=== PATIENT | female | born 1995 | race Caucasian/White ===

== ENCOUNTER 2017-02-03 22:05 | Inpatient (IN) | payer OTHER, SELFPAY ==
[~2017-02-03] VITALS: Ht 165.1 cm; Wt 64.1 kg
[2017-02-03] MEDS ORDERED: mood stabilizer PO (22:37)
[2017-02-03] MEDS ORDERED: BUPR10TASR PO (22:37)
[2017-02-03] MEDS ORDERED: atarax PO (22:37)
[2017-02-03 23:59] LABS: ALBUMIN 4.5 GM/DL (3.2-5.2); ALBUMIN/GLOBULIN RATIO 1.45 (1.00-1.93); ALKALINE PHOSPHATASE 93 U/L (45-117); ALT/SGPT 20 U/L (12-78); ANION GAP 8 MEQ/L (8-16); AST/SGOT 11 U/L (15-37); BILIRUBIN,DIRECT < 0.1 MG/DL (0.0-0.2); BILIRUBIN,TOTAL 0.3 MG/DL (0.2-1.0); BLOOD UREA NITROGEN 15 MG/DL (7-18); CALCIUM LEVEL 9.4 MG/DL (8.5-10.1); CARBON DIOXIDE LEVEL 28 MEQ/L (21-32); CHLORIDE LEVEL 105 MEQ/L (98-107); GLOMERULAR FILTRATION RATE > 60.0 (>60); GLUCOSE, FASTING 95 MG/DL (70-105); POTASSIUM SERUM 4.2 MEQ/L (3.5-5.1); SODIUM LEVEL 141 MEQ/L (136-145); TOTAL PROTEIN 7.6 GM/DL (6.4-8.2)
[2017-02-04 00:01] LABS: MEAN CORPUSCULAR HEMOGLOBIN 31.1 pg (27.0-33.0); MEAN CORPUSCULAR HGB CONC 33.3 g/dl (32.0-36.5); MEAN CORPUSCULAR VOLUME 93.6 fl (80.0-96.0); RED CELL DISTRIBUTION WIDTH 12.7 % (11.5-14.5); WHITE BLOOD COUNT 8.1 K/mm3 (4.0-10.0)
[2017-02-04 00:03] LABS: METHADONE URINE NEGATIVE (NEGATIVE)
[2017-02-04] MEDS ORDERED: MAALOX 30 ML SUSP *UDC PO PRN (01:00)
[2017-02-04] MEDS ORDERED: ACETAMINOPHEN TAB 650MG DOSE (2X325MG) PO PRN (01:00)
[2017-02-04] MEDS ORDERED: MOM 30ML SUSPENSION UDC PO PRN (01:00)
[2017-02-04] MEDS ORDERED: OXCA150T PO ×2 (01:46→09:26)
[2017-02-04] MEDS ORDERED: HYDR25T PO (01:46)
[2017-02-04] MEDS ORDERED: BUPR15TASR PO (01:46)
[2017-02-04 01:50] VITALS: BP 130/89
[2017-02-04 01:54] LABS: CONTROL LINE HCG INT CTR LINE PRESENT
[2017-02-04 06:18] VITALS: BP 116/57
[2017-02-04] MEDS: NICOTINE 21MG/24HR 1 EA TRANSDERMAL TD SCH (09:16)
[2017-02-04] MEDS ORDERED: BUPR150T3 PO (09:23)
--- NOTE | 2017-02-04 09:24 | HPEPDOC ---
Medical History and Physical Date of Admission Feb 04, 2017 at 00:50 History and Physical PCP: Diana ATTENDING: Dr. Woody Palomo HPI: 21yoF admitted to [facility] for Depression, being medically examined today. No acute medical complaints today. Pt is using crutches currently for partial ACL tearas per PCP. MRI Left knee completed following injury after Pt stepping into vehicle. Pt attending physical therapy in [place], F/U with Orthopedics . Denies any fevers, chills, weakness, fatigue, MAR, CP, SOB, cough, palpitations, abdominal pain, N/V/D or changes in bowel or bladder habits. PMHx: depression self mutilation PSHX: denies SOCHX: Resides in: [facility] Marital Status: Kids: None Employment: Unemployed Tobacco use: 6-7 per day ETOH: 1 to 2 per month Illicit Drugs: Marijuana weekly IV Drug Use: Denies Tattoos done unprofessionally: Denies FAMHX: Mother: Alive, well Father: Alive, well Siblings: 2 sisters Alive, well Children: None Unexpected deaths due to medical reasons: None. ROS: As noted in HPI, otherwise 11pt ROS of systems reviewed and remarkable only for LMP 12/25/16. PE: GEN: 21yoF, appears stated age. Well-nourished, well developed. No acute distress. Alert and oriented x 3. Pleasant, interactive. HEENT: Normocephalic, atraumatic. Pupils are equal, round, and reactive to light. Extraocular movements are intact. No nystagmus appreciated. Sclera are nonicteric. Conjunctiva without injection. Nose midline. Nasal turbinates without bogginess. EACs both patent BL. TMs both visualized and palacios with good cone of light, no bulging or erythema. No facial asymmetry. Moist mucous membranes. Dentition fair. Pharynx pink and moist, no cobblestoning. Neck supple , trachea midline. No lymphadenopathy or thyromegaly appreciated. CHEST: Regular rate and rhythm, +S1, +S2 LUNGS: Clear to auscultation bilaterally. No wheezes, rales, or rhonchi. Breathing appears symmetric and easy. Patient is speaking in full sentences. No accessory muscle use. ABD: Round, soft, non-tender, non-distended. +Bowel sounds throughout. No rebound or guarding. No costovertebral angle tenderness. EXT: Pulses 2+ bilaterally dorsalis pedis and radial. No lower extremity edema appreciated. SKIN: [place], dry, warm. Capillary refill <2sec. No rashes. Superficial lacerations noted b/l forearms. Healing laceration noted right mid hubbard. NEURO: Alert and oriented x 3. Cranial nerves III-XII are intact. No focal deficits appreciated. EKG: pending. A&P: 21yoF admitted to [facility] for Depression 1. Psych. Plan per Psychiatry. Obtain baseline EKG to assure the safety of psychiatric medications as they can prolong the QT interval. 2. Nicotine dependence. Patch available. 3. Partial ACL tear. Following with PCP. Has been referred to Orthopedics and has appt scheduled 02/23/17. Has been referred to and is seeing PT in [facility]. Will continue with PT. Pt continues to use crutches. Continue with Naproxen as needed for discomfort. 4. Follow up with PCP on discharge. 5. Substance use. Per psychiatry. 6. Superficial lacerations. Healing, no signs of infection. Apply Bactroban if needed. Dry dressing if needed. 7. Staff member Ana TALAVERA present throughout exam. Vital Signs Vital Signs Date Time Temp Pulse Resp B/P Pulse Ox O2 Delivery O2 Flow Rate FiO2 02/04/17 06:18 98.0 76 16 116/57 02/04/17 01:50 100 Room Air Laboratory Data Labs 24H Laboratory Tests 2 02/03/17 22:49: Acetaminophen Level < 2.0L, Aspartate Amino Transf (AST/SGOT) 11L, Alanine Aminotransferase (ALT/SGPT) 20, Alkaline Phosphatase 93, Total Bilirubin 0.3, Direct Bilirubin < 0.1, Albumin 4.5, Albumin/Globulin Ratio 1.45, Anion Gap 8, Calcium Level 9.4, Ethyl Alcohol Level < 0.003, Glomerular Filtration Rate > 60.0, Human Chorionic Gonadotropin, Qual NEGATIVE, Salicylates Level 2.2L, Thyroid Stimulating Hormone (TSH) 0.996, Total Protein 7.6, Urine Amphetamines Screen NEGATIVE, Urine Benzodiazepines Screen NEGATIVE, Urine Opiates Screen NEGATIVE, Urine Barbiturates Screen NEGATIVE, Urine Cannabinoids Screen POSITIVEH, Urine Cocaine Metabolite Screen NEGATIVE, Urine Methadone Screen NEGATIVE, Urine Phencyclidine Screen NEGATIVE CBC/BMP Laboratory Tests 02/03/17 22:49 Red Blood Count 4.45, Mean Corpuscular Volume 93.6, Mean Corpuscular Hemoglobin 31.1, Mean Corpuscular Hemoglobin Concent 33.3, Red Cell Distribution Width 12.7 Home Medications Scheduled Bupropion HCl (Bupropion HCl Sr) 150 Mg Tab 150 MG PO DAILY Hydroxyzine HCl (Hydroxyzine HCl) 25 Mg Tab Unknown Dose PO QHS Oxcarbazepine (Oxcarbazepine) 150 Mg Tab Unknown Dose PO BID Allergies Coded Allergies: No Known Allergies (Unverified , 02/03/17) Sridevi Roberts Feb 04, 2017 09:24
[2017-02-04] MEDS ORDERED: HYDR10T PO (09:26)
[2017-02-04] MEDS ORDERED: NAPR500T2 PO (09:26)
[2017-02-04] MEDS ORDERED: MELA0.02 PO (09:26)
[2017-02-04] MEDS ORDERED: MUPIROCIN 2% OINT 22 GM TUBE TOP PRN (09:30)
[2017-02-04] MEDS ORDERED: LEVOTAB11 PO (09:32)
[2017-02-04] MEDS ORDERED: LESSTAB PO (09:32)
[2017-02-04] MEDS: buPROPion **XL** TABLET 150MG (WELLBUTRIN XL) PO SCH (09:51)
--- NOTE | 2017-02-04 10:08 | MHHPE ---
DATE OF ADMISSION: 02/04/2017 This is a 21-year-old, , white female who has been for a year. Her is a soldier at [employer]. She is from [place] originally and has known her for five years. Her is a 20-year-old and wanted to make the Army his career. She describes him as "controlling about money and putting her down". She states recently when she told him she was going to the hospital he has called her an idiot. She states that she has serious suicidal thoughts two to three times a week since she was 16 years old. She states it is caused by other people picking on her. She states she constantly argues with her . She states he is different since he was deployed to [facility] and is more temperamental. The patient states she has cut herself since the age of 15 erratically. She was suicidal on the night of admission. EDUCATION: The patient wants GED. She states she procrastinates, it is not going well. She has not completed it or attempted to sign up for it. FAMILY HISTORY: Her father and mother are . Mother lives in [place]. Father lives in [place]. She has two siblings, a 16 and 24 year old sister. PSYCHIATRIC AND PSYCHOLOGICAL HISTORY: The patient is treated at [facility] by Dr. Merrill, psychiatrist, who she has seen once over telepsychiatry. She has a psychologist as well as a therapist as well as a regular doctor. She states she sees them to discuss her depression and fighting with her . She sees the therapist most frequently. SURGICAL HISTORY: She has torn her anterior cruciate ligament (ACL) attempting to get in a car after spraining her other ankle. MEDICATIONS: She is on a mood stabilizer that she does not know, apparently Tegretol. She is on Wellbutrin 150 mg and occasionally takes sleeping pills 10 mg. She does not know what they are, she says she takes up to three of them. LEGAL HISTORY: Negative. DRUG HISTORY: She smokes pot once to twice a week. She drinks occasionally. PSYCHIATRIC HISTORY: She has never been hospitalized. She presently is denying suicidal or homicidal ideation. She denies hallucinations, delusions, obsessions, compulsions, and phobias. Her speech is normal. Thought process is logical. No loose associations. No abnormal or psychotic thoughts. Judgment and insight are fair. She is fully oriented. No disturbance of recent and remote memory. No disturbance of attention or concentration. No disturbance of language. Full fund of knowledge. Mood is good. Affect is bright. DIAGNOSES: Dysthymic disorder. Mixed personality traits.
[2017-02-04 18:00] VITALS: BP 121/71
--- NOTE | 2017-02-04 18:45 | ECGEPIP ---
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
[2017-02-04] MEDS ORDERED: OXcarbazepine 150 MG TAB PO ONE (21:45)
[2017-02-05 07:12] VITALS: BP 105/58
[2017-02-05] MEDS: buPROPion **XL** TABLET 150MG (WELLBUTRIN XL) PO SCH (08:30)
[2017-02-05] MEDS: NICOTINE 21MG/24HR 1 EA TRANSDERMAL TD SCH (08:30)
[2017-02-05] MEDS ORDERED: hydrOXYzine 25 MG TAB PO PRN (12:15)
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
[2017-02-05] MEDS: NAPROXEN 250 MG TAB PO PRN (15:48)
[2017-02-05 18:00] VITALS: BP 127/88
[2017-02-05] MEDS: traZODone 50 MG TAB PO PRN (23:17)
[2017-02-06 06:34] VITALS: BP 103/54
[2017-02-06] MEDS: NICOTINE 21MG/24HR 1 EA TRANSDERMAL TD SCH (08:31)
[2017-02-06] MEDS: buPROPion **XL** TABLET 150MG (WELLBUTRIN XL) PO SCH (08:32)
[2017-02-06 18:00] VITALS: BP 122/81
[2017-02-06] MEDS: NAPROXEN 250 MG TAB PO PRN (19:34)
--- NOTE | 2017-02-06 20:05 | IPNPDOC ---
[facility] Progress Note Progress Note DATE OF SERVICE: 02/06/17 INTERVAL HISTORY: Medication Side effects: Believes that she has some dry mouth and lethargy from the trazodone Behavior/events: No events overnight was being visited by friend Group Attendance: Has attended groups Psychiatric Symptoms: Reports that her anxiety is slightly higher after being in the [place] but her depressive symptoms have resolved. VITAL SIGNS: See below. NEW TEST RESULTS: See below CURRENT MEDICATIONS: See below. MENTAL STATUS EXAMINATION: General: Well dressed with good hygiene Speech: Spontaneous and fluid Thought processes: Linear and logical Thought content: Future orientated Abstract reasoning, and computation: Intact Description of associations: Intact Description of abnormal or psychotic thoughts: Makes no threats towards herself or others. Denies any auditory or visual hallucinations. Does not appear to be responding to internal stimuli. Does not appear to be endorsing any bizarre or paranoid ideation. Judgment: Good Insight: Good Orientation: Alert and orientated 3 Recent and remote memory: Intact Attention span and concentration: Intact Fund of knowledge: Adequate Mood: "Okay" Affect: Euthymic with a full range DIAGNOSES: 1. Unspecified depressive disorder. 2. Unspecified personality disorder. ASSESSMENT: Improving MANAGEMENT PLAN: Medications: Continue Wellbutrin and trazodone Psychotherapy: Encourage group psychotherapy Social: Consider possible discharge on Wednesday depending on primary team's opinion Misc: Ordered UA and hemoglobin A1c due to long history of polyuria at night as well as increased thirst last several years Disposition: The patient will need of further inpatient stay to address medication adjustment safety planning. TIME SPENT: 15 minutes. Vital Signs Vital Signs Date Time Temp Pulse Resp B/P Pulse Ox O2 Delivery O2 Flow Rate FiO2 02/06/17 06:34 96.7 81 16 103/54 02/04/17 01:50 100 Room Air Current Medications Current Medications Acetaminophen (Tylenol Tab) 650 mg Q6HP PRN PO HEADACHE or DISCOMFORT; Start at 01:00; Stop 03/06/17 at 00:59 Al Hydrox/Mg Hydrox/Simethicone (Mylanta) 30 ml Q4HP PRN PO HEARTBURN/ INDIGESTION; Start 02/04/17 at 01:00; Stop 03/06/17 at 00:59 Bupropion HCl (Wellbutrin Xl) 150 mg DAILY PO Last administered on 02/06/17t 08 :32; Start 02/04/17 at 09:00; Stop 03/06/17 at 08:59 Home Med (Med Rec Complete!) ASDIRECTED XX ; Start 02/04/17 at 02:00; Stop at 02:24; Status DC Home Med (Med Rec Complete!) ASDIRECTED XX ; Start 02/04/17 at 09:45; Stop at 09:45; Status DC Hydroxyzine HCl (Atarax) 25 mg Q6HP PRN PO ANXIETY Last administered on 12:14; Start 02/05/17 at 12:15; Stop 03/07/17 at 12:14 Magnesium Hydroxide (Milk Of Magnesia) 30 ml DAILYPRN PRN PO CONSTIPATION; Start 02/04/17 at 01:00; Stop 03/06/17 at 00:59 Mupirocin (Bactroban 2% Ointment) 1 dose BID PRN TOP REDNESS/IRRITATION; Start 02/04/17 at 09:30; Stop 03/06/17 at 09:29 Naproxen (Naprosyn) 250 mg Q12HP PRN PO PAIN OR DISCOMFORT Last administered on 02/06/17 19:34; Start 02/04/17 at 09:30; Stop 03/06/17 at 09:29 Nicotine (Nicoderm Cq 21mg) 1 patch DAILY TD Last administered on 02/06/17 08: 31; Start 02/04/17 at 09:00; Stop 03/06/17 at 08:59 Trazodone HCl (Desyrel) 50 mg QHSP PRN PO INSOMNIA Last administered on 23:17; Start 02/04/17 at 01:00; Stop 03/06/17 at 00:59 Allergies Coded Allergies: No Known Allergies (Unverified , 02/03/17) GME ATTESTATION My preceptor for this patient encounter was physically present in the building during the encounter and was fully available. As needed, all aspects of the patient interview, examination, medical decision making process, and medical care plan development were reviewed and approved by the preceptor. Preceptor is aware and concurs with the plan as stated in the body of this note and will attest to such by his/her cosignature. MARKIE LOREDO DO, Apr 22, 2017 20:05
[2017-02-07] MEDS: traZODone 50 MG TAB PO PRN ×2 (00:03→23:03)
[2017-02-07 06:41] VITALS: BP 126/87
[2017-02-07] MEDS: buPROPion **XL** TABLET 150MG (WELLBUTRIN XL) PO SCH (08:21)
[2017-02-07] MEDS: NICOTINE 21MG/24HR 1 EA TRANSDERMAL TD SCH (08:21)
[2017-02-07 18:00] VITALS: BP 118/80
[2017-02-07] MEDS: NAPROXEN 250 MG TAB PO PRN (18:57)
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
[2017-02-08 06:23] VITALS: BP 97/54
[2017-02-08] MEDS: NICOTINE 21MG/24HR 1 EA TRANSDERMAL TD SCH (08:46)
[2017-02-08] MEDS: buPROPion **XL** TABLET 150MG (WELLBUTRIN XL) PO SCH (08:46)
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
[2017-02-08] MEDS: NAPROXEN 250 MG TAB PO PRN (16:02)
[2017-02-08 18:00] VITALS: BP 127/64
[2017-02-08] MEDS: traZODone 50 MG TAB PO PRN (21:53)
[2017-02-09 06:49] VITALS: BP 113/59
[2017-02-09] MEDS: buPROPion **XL** TABLET 150MG (WELLBUTRIN XL) PO SCH (08:04)
[2017-02-09] MEDS: NICOTINE 21MG/24HR 1 EA TRANSDERMAL TD SCH (08:04)
[2017-02-09] MEDS ORDERED: HYDR25T PO (09:07)
[2017-02-09] MEDS ORDERED: NAPR250T45 PO (09:07)
[2017-02-09] MEDS ORDERED: BUPR150T3 PO (09:07)
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
== END 2017-02-09 12:20 | disposition home or self-care (01) | DRG 881 ==
LOC: M ED 23:32 → M ED INP 02-04 00:50 → M PSY 02-04 01:53
PROVIDERS: ADMIT Psychiatry & Neurology Child & Adolescent Psychiatry; ATTEND Psychiatry & Neurology Child & Adolescent Psychiatry
DX: F32.9 Major depressive disorder, single episode, unspecified (principal); Z63.0 Problems in relationship with spouse or partner; Z79.899 Other long term (current) drug therapy; F17.200 Nicotine dependence, unspecified, uncomplicated

== ENCOUNTER → 2017-11-29 | Outpatient (REF) | payer OTHER | LOC: M LAB REF 13:35 | DX: J11.1 Influenza due to unidentified influenza virus with other respiratory manifestations (principal) ==

== ENCOUNTER → 2018-01-17 | Outpatient (CLI) | payer OTHER ==
[2018-01-17 18:40] LABS: ALBUMIN 4.5 GM/DL (3.2-5.2); ALBUMIN/GLOBULIN RATIO 1.45 (1.00-1.93); ALKALINE PHOSPHATASE 68 U/L (45-117); ALT/SGPT 17 U/L (12-78); AMYLASE 24 U/L (25-115); ANION GAP 3 MEQ/L (8-16); AST/SGOT 16 U/L (7-37); BILIRUBIN,TOTAL 0.4 MG/DL (0.2-1.0); BLOOD UREA NITROGEN 12 MG/DL (7-18); CALCIUM LEVEL 9.5 MG/DL (8.5-10.1); CARBON DIOXIDE LEVEL 27 MEQ/L (21-32); CHLORIDE LEVEL 110 MEQ/L (98-107); CREATININE FOR GFR 0.78 MG/DL (0.55-1.30); GLOMERULAR FILTRATION RATE > 60.0 (>60); GLUCOSE, FASTING 81 MG/DL (70-100); LIPASE 65 U/L (73-393); SODIUM LEVEL 140 MEQ/L (136-145); TOTAL PROTEIN 7.6 GM/DL (6.4-8.2)
[2018-01-17 18:45] LABS: BASO % 0.3 % (0.0-1.0); EOS # 0.2 10^3/uL (0.0-0.50); EOS % 2.4 % (0.0-3.0); HEMATOCRIT 42.3 % (36.0-47.0); HEMOGLOBIN 13.6 g/dl (12.0-15.5); IMMATURE GRANULOCYTE % 0.3 % (0-3.0); LYMPH # 2.4 10^3/uL (1.5-6.5); LYMPH % 32.4 % (24.0-44.0); MEAN CORPUSCULAR HEMOGLOBIN 31.2 pg (27.0-33.0); MEAN CORPUSCULAR HGB CONC 32.2 g/dl (32.0-36.5); MONO # 0.6 10^3/uL (0.0-0.8); MONO % 7.3 % (0.0-5.0); NEUTROPHILS # 4.3 10^3/uL (1.8-7.7); NEUTROPHILS % 57.3 % (36.0-66.0); PLATELET COUNT, AUTOMATED 243 10^3/uL (150-450); RED BLOOD COUNT 4.36 10^6/uL (4.00-5.40); RED CELL DISTRIBUTION WIDTH 13.6 % (11.5-14.5); WHITE BLOOD COUNT 7.5 10^3/uL (4.0-10.0)
[2018-01-17 18:52] LABS: POTASSIUM SERUM 5.2 MEQ/L (3.5-5.1)
== END ==
LOC: M WUC 15:10
DX: R10.816 Epigastric abdominal tenderness (principal)
CPT/HCPCS: 82150

== ENCOUNTER 2018-09-05 22:34 | Emergency (ER) | payer OTHER | END 2018-09-05 23:46 | disposition home or self-care (01) | LOC: M ED 22:34 | DX: R20.2 Paresthesia of skin (principal) | CPT/HCPCS: 99282 ==

== ENCOUNTER 2018-09-19 15:25 | Emergency (ER) | payer OTHER, SELFPAY | END 2018-09-19 18:15 | disposition left against medical advice (07) | LOC: M ED 15:25 | DX: Z53.29 Procedure and treatment not carried out because of patient's decision for other reasons (principal) ==

== ENCOUNTER 2018-11-02 13:34 | Emergency (ER) | payer OTHER ==
[~2018-11-02] VITALS: Ht 165.1 cm; Wt 60.4 kg
[~2018-11-02 13:34] MED LIST: BUPR10TASR PO; BUPR150T3 PO; BUPR15TASR PO; HYDR-3363 PO; HYDR-643 PO; LESSTAB PO; LEVOTAB11 PO; MELA3TAB49 PO; NAPR-885 PO; NAPR250T82 PO; OXCA150T21 PO; PROAAER10; atarax PO; mood stabilizer PO
[2018-11-02] MEDS ORDERED: PRENTAB45 PO (13:54)
[2018-11-02] MEDS ORDERED: LIDOCAINE 1% MDV 20ML VIAL SC ONE (15:15)
[2018-11-02] MEDS ORDERED: ADACEL/BOOSTRIX VACCINE (DIPHTH/PERTUSS/ACELL/TETANUS)0.5ML SYR (90715) IM ONE (15:15)
--- NOTE | 2018-11-02 15:49 | REP ---
RIGHT FINGERS, FOUR VIEWS: HISTORY: Index finger laceration. There is no acute fracture or dislocation. The joint spaces are normal in appearance. A defect is present in the soft tissue overlying the proximal interphalangeal joint of the second digit. There is no radiopaque foreign body. IMPRESSION: There is no acute fracture or dislocation. Electronically Signed by Bam Pepe MD 11/02/2018 03:52 P
[2018-11-02] MEDS ORDERED: DERMABOND TOPICAL SKIN ADHESIVE TOP ONE (16:00)
[2018-11-02 16:43] VITALS: BP 110/66
== END 2018-11-02 17:08 | disposition home or self-care (01) ==
LOC: M ED 13:34
DX: S61.210A Laceration without foreign body of right index finger without damage to nail, initial encounter (principal); S51.811A Laceration without foreign body of right forearm, initial encounter; W25.XXXA Contact with sharp glass, initial encounter; Y92.019 Unspecified place in single-family (private) house as the place of occurrence of the external cause

== ENCOUNTER 2018-11-09 17:01 | Emergency (ER) | payer OTHER ==
[~2018-11-09] VITALS: Ht 165.1 cm; Wt 60.5 kg
[~2018-11-09 17:01] MED LIST changes: +PRENTAB45 PO
[2018-11-09 17:02] VITALS: BP 119/71
== END 2018-11-09 18:53 | disposition left against medical advice (07) ==
LOC: M ED 17:01
DX: Z48.01 Encounter for change or removal of surgical wound dressing (principal)

== ENCOUNTER 2018-12-09 18:45 | Emergency (ER) | payer OTHER ==
[~2018-12-09] VITALS: Ht 165.1 cm; Wt 63.0 kg
[2018-12-09] MEDS ORDERED: NS 1,000 ML IV ONE (19:45)
[2018-12-09] MEDS ORDERED: ONDANSETRON 4MG/2ML VIAL (J2405) IV ONE (19:45)
[2018-12-09] MEDS ORDERED: PANTOPRAZOLE 40MG INJ (PROTONIX) (C9113) IV ONE (19:45)
[2018-12-09 20:07] LABS: BASO % 0.3 % (0.0-1.0); EOS # 0.2 10^3/uL (0.0-0.50); EOS % 1.2 % (0.0-3.0); HEMATOCRIT 42.5 % (36.0-47.0); HEMOGLOBIN 14.1 g/dl (12.0-15.5); LYMPH # 2.7 10^3/uL (1.5-6.5); LYMPH % 18.7 % (24.0-44.0); MEAN CORPUSCULAR HEMOGLOBIN 31.2 pg (27.0-33.0); MEAN CORPUSCULAR HGB CONC 33.2 g/dl (32.0-36.5); MONO # 0.7 10^3/uL (0.0-0.8); MONO % 4.8 % (0.0-5.0); NEUTROPHILS # 10.8 10^3/uL (1.8-7.7); NEUTROPHILS % 74.7 % (36.0-66.0); PLATELET COUNT, AUTOMATED 237 10^3/uL (150-450); RED BLOOD COUNT 4.52 10^6/uL (4.00-5.40); WHITE BLOOD COUNT 14.5 10^3/uL (4.0-10.0)
[2018-12-09 20:35] LABS: ALBUMIN 4.4 GM/DL (3.2-5.2); ALT/SGPT 30 U/L (12-78); AMYLASE 28 U/L (25-115); BILIRUBIN,DIRECT < 0.1 MG/DL (0.0-0.2); BILIRUBIN,TOTAL 0.3 MG/DL (0.2-1.0); BLOOD UREA NITROGEN 11 MG/DL (7-18); CALCIUM LEVEL 9.2 MG/DL (8.5-10.1); CARBON DIOXIDE LEVEL 26 MEQ/L (21-32); CHLORIDE LEVEL 106 MEQ/L (98-107); CREATININE FOR GFR 0.67 MG/DL (0.55-1.30); GLOMERULAR FILTRATION RATE > 60.0 (>60); GLUCOSE, FASTING 88 MG/DL (70-100); HCG, SERUM QUALITATIVE NEGATIVE (NEGATIVE); LIPASE 79 U/L (73-393); POTASSIUM SERUM 4.1 MEQ/L (3.5-5.1); SODIUM LEVEL 142 MEQ/L (136-145)
[2018-12-09] MEDS ORDERED: ZOFR4TAB16 PO (20:48)
[2018-12-09 20:56] VITALS: BP 128/72
[2018-12-09] MEDS ORDERED: ACETAMINOPHEN 325 MG TAB PO ONE (21:00)
== END 2018-12-09 21:03 | disposition home or self-care (01) ==
LOC: M ED 18:45
DX: B34.9 Viral infection, unspecified (principal); R11.2 Nausea with vomiting, unspecified; F17.200 Nicotine dependence, unspecified, uncomplicated
CPT/HCPCS: 80048; 80076; 81001; 81025; 82150; 83690; 84703; 85025; 87086; 96374; 96375; 99284; C9113; J2405

== ENCOUNTER → 2018-12-21 | Outpatient (REF) ==
[~2018-12-21] MED LIST changes: +ACET-683 PO; +IBUP80TA PO; +ZOFR4TAB16 PO
[2018-12-21 14:17] LABS: RUBELLA IgG QUALITATIVE IMMUNE (IMMUNE)
[2018-12-22 10:56] LABS: HERPES ZOSTER, VARICELLA IgG 986 index (Immune >165); RUBEOLA IgG ANTIBODY >300.0 AU/mL (Immune >29.9)
== END ==
LOC: M LAB 12:28
PROVIDERS: ATTEND Nurse Practitioner Adult Health
DX: Z02.89 Encounter for other administrative examinations (principal)

== ENCOUNTER 2018-12-24 10:59 | Emergency (ER) | payer OTHER ==
[~2018-12-24] VITALS: Ht 165.1 cm; Wt 61.4 kg
[~2018-12-24 10:59] MED LIST changes: -ACET-683 PO; -IBUP80TA PO
[2018-12-24 11:43] LABS: BASO # 0.1 10^3/uL (0.0-0.2); BASO % 0.6 % (0.0-1.0); EOS # 0.3 10^3/uL (0.0-0.50); EOS % 3.2 % (0.0-3.0); HEMATOCRIT 43.5 % (36.0-47.0); HEMOGLOBIN 14.2 g/dl (12.0-15.5); LYMPH # 2.5 10^3/uL (1.5-6.5); LYMPH % 31.4 % (24.0-44.0); MEAN CORPUSCULAR HEMOGLOBIN 31.6 pg (27.0-33.0); MEAN CORPUSCULAR HGB CONC 32.6 g/dl (32.0-36.5); MEAN CORPUSCULAR VOLUME 96.7 fl (80.0-96.0); MONO # 0.6 10^3/uL (0.0-0.8); MONO % 7.3 % (0.0-5.0); NEUTROPHILS # 4.5 10^3/uL (1.8-7.7); NEUTROPHILS % 57.4 % (36.0-66.0); PLATELET COUNT, AUTOMATED 270 10^3/uL (150-450); WHITE BLOOD COUNT 7.8 10^3/uL (4.0-10.0)
[2018-12-24 12:18] LABS: BLOOD UREA NITROGEN 8 MG/DL (7-18); CALCIUM LEVEL 9.3 MG/DL (8.5-10.1); CARBON DIOXIDE LEVEL 28 MEQ/L (21-32); CHLORIDE LEVEL 106 MEQ/L (98-107); CREATININE FOR GFR 0.68 MG/DL (0.55-1.30); GLOMERULAR FILTRATION RATE > 60.0 (>60); GLUCOSE, FASTING 102 MG/DL (70-100); HCG, SERUM QUANTITATIVE < 1.0 MIU/ML; POTASSIUM SERUM 4.4 MEQ/L (3.5-5.1); SODIUM LEVEL 141 MEQ/L (136-145)
[2018-12-24] MEDS ORDERED: IBUP80TA PO (14:00)
[2018-12-24] MEDS ORDERED: ACET-683 PO (14:00)
[2018-12-24 14:07] VITALS: BP 129/72
== END 2018-12-24 14:15 | disposition home or self-care (01) ==
LOC: M ED 10:59
DX: R10.2 Pelvic and perineal pain (principal); F17.200 Nicotine dependence, unspecified, uncomplicated; Z87.59 Personal history of other complications of pregnancy, childbirth and the puerperium; Z98.890 Other specified postprocedural states

== ENCOUNTER 2018-12-26 23:09 | Inpatient (IN) | payer OTHER ==
[~2018-12-26] VITALS: Ht 165.1 cm; Wt 60.0 kg
[~2018-12-26 23:09] MED LIST changes: +ACET-683 PO; +IBUP80TA PO
[2018-12-26 23:45] LABS: HEMATOCRIT 41.8 % (36.0-47.0); HEMOGLOBIN 13.7 g/dl (12.0-15.5); MEAN CORPUSCULAR HEMOGLOBIN 31.1 pg (27.0-33.0); MEAN CORPUSCULAR HGB CONC 32.8 g/dl (32.0-36.5); PLATELET COUNT, AUTOMATED 275 10^3/uL (150-450); WHITE BLOOD COUNT 11.4 10^3/uL (4.0-10.0)
[2018-12-27 00:07] LABS: HCG, SERUM QUALITATIVE NEGATIVE (NEGATIVE)
[2018-12-27 00:08] LABS: ACETAMINOPHEN LEVEL < 2.0 UG/ML (10.0-30.0); ALBUMIN 4.6 GM/DL (3.2-5.2); ALT/SGPT 51 U/L (12-78); BILIRUBIN,DIRECT < 0.1 MG/DL (0.0-0.2); BILIRUBIN,TOTAL 0.3 MG/DL (0.2-1.0); BLOOD UREA NITROGEN 10 MG/DL (7-18); CALCIUM LEVEL 8.9 MG/DL (8.5-10.1); CARBON DIOXIDE LEVEL 23 MEQ/L (21-32); CHLORIDE LEVEL 109 MEQ/L (98-107); CREATININE FOR GFR 0.64 MG/DL (0.55-1.30); ETHYL ALCOHOL (ETHANOL) < 0.003 % (0.000-0.010); GLOMERULAR FILTRATION RATE > 60.0 (>60); GLUCOSE, FASTING 97 MG/DL (70-100); POTASSIUM SERUM 3.8 MEQ/L (3.5-5.1); SALICYLATE LEVEL 1.9 MG/DL (5.0-30.0); SODIUM LEVEL 141 MEQ/L (136-145); TOTAL PROTEIN 7.7 GM/DL (6.4-8.2)
[2018-12-27 00:42] LABS: AMPHETAMINES LEVEL URINE NEGATIVE (NEGATIVE); BARBITURATES URINE NEGATIVE (NEGATIVE); BENZODIAZEPINES URINE NEGATIVE (NEGATIVE); CANNABINOIDS URINE POSITIVE (NEGATIVE); COCAINE METABOLITE URINE NEGATIVE (NEGATIVE); METHADONE URINE NEGATIVE (NEGATIVE); OPIATES URINE NEGATIVE (NEGATIVE); PHENCYCLIDINE URINE NEGATIVE (NEGATIVE)
[2018-12-27] MEDS ORDERED: NICOTINE 21MG/24HR 1 EA TRANSDERMAL TD ONE (11:45)
[2018-12-27] MEDS ORDERED: ACETAMINOPHEN TAB 650MG DOSE (2X325MG) PO PRN (14:30)
[2018-12-27] MEDS ORDERED: MAALOX 30 ML SUSP *UDC PO PRN (14:30)
[2018-12-27] MEDS ORDERED: MOM 30ML SUSPENSION UDC PO PRN (14:30)
[2018-12-27] MEDS: traZODone 50 MG TAB PO PRN (21:00)
[2018-12-28 06:00] VITALS: BP 97/53
[2018-12-28] MEDS: NICOTINE 21MG/24HR 1 EA TRANSDERMAL TD SCH (09:05)
--- NOTE | 2018-12-28 09:39 | HPEPDOC ---
[facility] Medical History & Physical Date of Admission Dec 27, 2018 History and Physical PCP: Diana Vera ATTENDING: Dr. Perry Ortiz HPI: 23yoF admitted to [facility] for unspecified depressive disorder, being medically examined today. No acute medical complaints today. Denies any fevers, chills, weakness, fatigue, MAR, CP, SOB, cough, palpitations, abdominal pain, N/V/D or changes in bowel or bladder habits. 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 ROS: As noted in HPI, otherwise 11pt ROS of systems reviewed and remarkable only for LMP unknown per pt PE: GEN: 23yoF, appears stated age. Well-nourished, well developed. No acute distress. Alert and oriented x 3. Pleasant, interactive. HEENT: Normocephalic, atraumatic. Pupils are equal, round, and reactive to light. Extraocular movements are intact. No nystagmus appreciated. Sclera are nonicteric. Conjunctiva without injection. Nose midline. Nasal turbinates without bogginess. EACs both patent BL. TMs both visualized and palacios with good cone of light, no bulging or erythema. No facial asymmetry. Moist mucous membranes. Dentition fair. Pharynx pink and moist, no cobblestoning. Neck supple, trachea midline. No lymphadenopathy or thyromegaly appreciated. CHEST: Regular rate and rhythm, +S1, +S2 LUNGS: Clear to auscultation bilaterally. No wheezes, rales, or rhonchi. Breathing appears symmetric and easy. Patient is speaking in full sentences. No accessory muscle use. ABD: Round, soft, non-tender, non-distended. +Bowel sounds throughout. No rebound or guarding. No costovertebral angle tenderness. EXT: Pulses 2+ bilaterally dorsalis pedis and radial. No lower extremity edema appreciated. SKIN: [place], dry, warm. Capillary refill <2sec. No rashes. Superficial lacerations noted rt forearm. NEURO: Alert and oriented x 3. Cranial nerves III-XII are intact. No focal deficits appreciated. EKG: pending. A&P: 23yoF admitted to [facility] for depressive disorder 1. Psych. Plan per Psychiatry. Obtain baseline EKG to assure the safety of psychiatric medications as they can prolong the QT interval. 2. Nicotine dependence. Patch available. 3. Mild Leukocytosis. Pt is afebrile. Possible stress response. Recheck CBC in Am. 4. Follow up with PCP on discharge. 5. Superficial lacerations. Healing, no signs of infection. Dry dressing if needed. 6. Staff member Brianna TALAVERA present throughout exam. Vital Signs Vital Signs Date Time Temp Pulse Resp B/P (MAP) Pulse Ox O2 Delivery O2 Flow Rate FiO2 12/28/18 06:00 97.5 77 14 97/53 (68) 12/27/18 14:37 100 12/27/18 06:40 Room Air Laboratory Data Labs 24H Item Value Date Time White Blood Count 11.4 10^3/uL H 12/26/182320 Red Blood Count 4.40 10^6/uL 12/26/182320 Hemoglobin 13.7 g/dl 12/26/182320 Hematocrit 41.8 % 12/26/182320 Mean Corpuscular Volume 95.0 fl 12/26/182320 Mean Corpuscular Hemoglobin 31.1 pg 12/26/182320 Mean Corpuscular Hemoglobin Concent 32.8 g/dl 12/26/182320 Red Cell Distribution Width 13.1 % 12/26/182320 Platelet Count 275 10^3/uL 12/26/18 2321 Nucleated Red Blood Cells % (auto) 0.0 % 12/26/182320 Sodium Level 141 MEQ/L 12/26/18 2321 Potassium Level 3.8 MEQ/L 12/26/18 232 Chloride Level 109 MEQ/L H 12/26/18 232 Carbon Dioxide Level 23 MEQ/L 12/26/182320 Anion Gap 9 MEQ/L 12/26/182320 Blood Urea Nitrogen 10 MG/DL 12/26/18 2321 Creatinine 0.64 MG/DL 12/26/181 Glomerular Filtration Rate > 60.0 12/26/181 Fasting Glucose 97 MG/DL 12/26/181 Calcium Level 8.9 MG/DL 12/26/181 Total Bilirubin 0.3 MG/DL 12/26/181 Direct Bilirubin < 0.1 MG/DL 12/26/181 Aspartate Amino Transf (AST/SGOT) 28 U/L 12/26/181 Alanine Aminotransferase (ALT/SGPT) 51 U/L 12/26/181 Alkaline Phosphatase 85 U/L 12/26/181 Total Protein 7.7 GM/DL 12/26/181 Albumin 4.6 GM/DL 12/26/181 Albumin/Globulin Ratio 1.48 12/26/181 Thyroid Stimulating Hormone (TSH) 1.150 uIU/ML 12/26/181 Human Chorionic Gonadotropin, Qual NEGATIVE 12/26/181 Salicylates Level 1.9 MG/DL L 12/26/181 Urine Opiates Screen NEGATIVE 12/26/181 Urine Methadone Screen NEGATIVE 12/26/18 2321 Acetaminophen Level < 2.0 UG/ML L 12/26/181 Urine Barbiturates Screen NEGATIVE 12/26/181 Urine Phencyclidine Screen NEGATIVE 12/26/181 Urine Amphetamines Screen NEGATIVE 12/26/181 Urine Benzodiazepines Screen NEGATIVE 12/26/181 Urine Cocaine Metabolite Screen NEGATIVE 12/26/182320 Urine Cannabinoids Screen POSITIVE H 12/26/181 Ethyl Alcohol Level < 0.003 % 12/26/182320 Home Medications No Active Prescriptions or Reported Meds Allergies Coded Allergies: No Known Allergies (Unverified , 02/03/17) Sridevi Roberts Dec 28, 2018 09:39
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
--- NOTE | 2018-12-28 17:47 | ECGEPIP ---
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
[2018-12-28 18:10] VITALS: BP 115/58
[2018-12-28] MEDS: traZODone 50 MG TAB PO PRN (22:27)
[2018-12-29 06:28] VITALS: BP 99/55
[2018-12-29] MEDS: NICOTINE 21MG/24HR 1 EA TRANSDERMAL TD SCH (08:20)
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
[2018-12-29 10:43] LABS: MEAN CORPUSCULAR HEMOGLOBIN 31.3 pg (27.0-33.0); MEAN CORPUSCULAR HGB CONC 32.5 g/dl (32.0-36.5); MEAN CORPUSCULAR VOLUME 96.4 fl (80.0-96.0); PLATELET COUNT, AUTOMATED 247 10^3/uL (150-450); RED BLOOD COUNT 4.15 10^6/uL (4.00-5.40)
[2018-12-29 18:00] VITALS: BP 107/64
[2018-12-29] MEDS: traZODone 50 MG TAB PO PRN (21:58)
[2018-12-30 06:18] VITALS: BP_SYST 115; BP_SYST 99; BP_DIAS 52; BP_DIAS 58
[2018-12-30] MEDS: NICOTINE 21MG/24HR 1 EA TRANSDERMAL TD SCH (08:03)
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
== END 2018-12-30 10:45 | disposition home or self-care (01) | DRG 754 ==
LOC: M ED 23:09 → M ED INP 12-27 14:17 → M PSY 12-27 14:42
PROVIDERS: ADMIT Psychiatry & Neurology Psychiatry; ATTEND Psychiatry & Neurology Psychiatry
DX: F32.9 Major depressive disorder, single episode, unspecified (principal); D72.829 Elevated white blood cell count, unspecified; F43.23 Adjustment disorder with mixed anxiety and depressed mood; F12.10 Cannabis abuse, uncomplicated; F60.3 Borderline personality disorder; F17.200 Nicotine dependence, unspecified, uncomplicated

== ENCOUNTER 2019-01-10 12:54 | Emergency (ER) | payer OTHER ==
[~2019-01-10] VITALS: Ht 165.1 cm; Wt 65.0 kg
[2019-01-10 15:22] LABS: HEMATOCRIT 40.9 % (36.0-47.0); HEMOGLOBIN 13.5 g/dl (12.0-15.5); MEAN CORPUSCULAR HEMOGLOBIN 32.1 pg (27.0-33.0); MEAN CORPUSCULAR VOLUME 97.4 fl (80.0-96.0); PLATELET COUNT, AUTOMATED 215 10^3/uL (150-450); WHITE BLOOD COUNT 10.2 10^3/uL (4.0-10.0)
[2019-01-10 15:38] LABS: AMPHETAMINES LEVEL URINE NEGATIVE (NEGATIVE); BARBITURATES URINE NEGATIVE (NEGATIVE); BENZODIAZEPINES URINE NEGATIVE (NEGATIVE); CANNABINOIDS URINE POSITIVE (NEGATIVE); COCAINE METABOLITE URINE NEGATIVE (NEGATIVE); METHADONE URINE NEGATIVE (NEGATIVE); OPIATES URINE NEGATIVE (NEGATIVE); PHENCYCLIDINE URINE NEGATIVE (NEGATIVE)
[2019-01-10 15:45] LABS: HCG, SERUM QUALITATIVE NEGATIVE (NEGATIVE)
[2019-01-10 16:00] LABS: ACETAMINOPHEN LEVEL < 2.0 UG/ML (10.0-30.0); ALBUMIN 4.3 GM/DL (3.2-5.2); ALT/SGPT 16 U/L (12-78); BILIRUBIN,DIRECT < 0.1 MG/DL (0.0-0.2); BILIRUBIN,TOTAL 0.3 MG/DL (0.2-1.0); BLOOD UREA NITROGEN 12 MG/DL (7-18); CALCIUM LEVEL 9.1 MG/DL (8.5-10.1); CARBON DIOXIDE LEVEL 27 MEQ/L (21-32); CHLORIDE LEVEL 109 MEQ/L (98-107); CREATININE FOR GFR 0.85 MG/DL (0.55-1.30); ETHYL ALCOHOL (ETHANOL) < 0.003 % (0.000-0.010); GLOMERULAR FILTRATION RATE > 60.0 (>60); GLUCOSE, FASTING 94 MG/DL (70-100); POTASSIUM SERUM 4.3 MEQ/L (3.5-5.1); SALICYLATE LEVEL 3.2 MG/DL (5.0-30.0); SODIUM LEVEL 142 MEQ/L (136-145); THYROID STIMULATING HORMONE 0.351 uIU/ML (0.358-3.740)
[2019-01-10 16:30] VITALS: BP 109/54
[2019-01-10 16:32] LABS: FREE T4 0.86 NG/DL (0.76-1.46)
== END 2019-01-10 16:36 | disposition home or self-care (01) ==
LOC: M ED 12:54
DX: F43.0 Acute stress reaction (principal); F32.9 Major depressive disorder, single episode, unspecified; F41.9 Anxiety disorder, unspecified; Z91.5 Personal history of self-harm; Z72.0 Tobacco use
CPT/HCPCS: 80048; 80076; 80307; 84439; 84443; 84703; 85027; 99284; G0480

== ENCOUNTER 2019-01-30 04:02 | Emergency (ER) | payer OTHER ==
[~2019-01-30] VITALS: Ht 165.1 cm; Wt 62.7 kg
[2019-01-30] MEDS ORDERED: ONDANSETRON 4 MG ORAL DISINTEGRATING TAB (Q0162 PER 1MG) PO ONE (04:30)
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
[2019-01-30] MEDS ORDERED: ACETAMINOPHEN TAB 650MG DOSE (2X325MG) PO ONE (05:45)
[2019-01-30 07:28] VITALS: BP 109/61
== END 2019-01-30 07:35 | disposition home or self-care (01) ==
LOC: M ED 04:02
DX: S00.03XA Contusion of scalp, initial encounter (principal); Y04.8XXA Assault by other bodily force, initial encounter; Y92.018 Other place in single-family (private) house as the place of occurrence of the external cause; F17.210 Nicotine dependence, cigarettes, uncomplicated
CPT/HCPCS: 70450; 72125; 99283; Q0162

== ENCOUNTER 2019-03-17 17:36 | Emergency (ER) | payer OTHER ==
[~2019-03-17] VITALS: Ht 165.1 cm; Wt 63.6 kg
[2019-03-17 17:36] VITALS: BP 126/67
[2019-03-17] MEDS ORDERED: IBUP-1022 PO (18:19)
[2019-03-17] MEDS ORDERED: METH1TAB40 PO (18:19)
== END 2019-03-17 18:46 | disposition home or self-care (01) ==
LOC: M ED 17:36
DX: S39.012A Strain of muscle, fascia and tendon of lower back, initial encounter (principal); X50.9XXA Other and unspecified overexertion or strenuous movements or postures, initial encounter; Y92.89 Other specified places as the place of occurrence of the external cause

== ENCOUNTER 2019-03-21 21:09 | Emergency (ER) | payer OTHER ==
[~2019-03-21] VITALS: Ht 165.1 cm; Wt 59.1 kg
[~2019-03-21 21:09] MED LIST changes: +IBUP-1022 PO; +METH1TAB40 PO
[2019-03-21 21:10] VITALS: BP 131/84
== END 2019-03-21 22:00 | disposition left against medical advice (07) ==
LOC: M ED 21:09
DX: M54.9 Dorsalgia, unspecified (principal); R11.10 Vomiting, unspecified; Z53.21 Procedure and treatment not carried out due to patient leaving prior to being seen by health care provider

== ENCOUNTER → 2019-04-06 | Outpatient (REF) | payer OTHER ==
[~2019-04-06] MED LIST changes: +SULF1TAB93; +VENTAER INH
[2019-04-08 01:35] LABS: Lyme Disease IgG/IgM Antibodie <0.91 ISR (0.00-0.90); Lyme Disease IgM Ab Quantitati <0.80 index (0.00-0.79)
== END ==
LOC: M LABDRAW1 11:48
PROVIDERS: ATTEND Orthopaedic Surgery
DX: M25.562 Pain in left knee (principal)

== ENCOUNTER 2019-04-10 23:41 | Emergency (ER) | payer OTHER ==
[~2019-04-10] VITALS: Ht 165.1 cm; Wt 63.6 kg
[~2019-04-10 23:41] MED LIST changes: -SULF1TAB93; -VENTAER INH
[2019-04-11] MEDS ORDERED: SULF1TAB93 (00:08)
[2019-04-11 02:01] VITALS: BP 121/47
== END 2019-04-11 02:02 | disposition home or self-care (01) ==
LOC: M ED 23:41
DX: S60.410A Abrasion of right index finger, initial encounter (principal); X58.XXXA Exposure to other specified factors, initial encounter; Y92.230 Patient room in hospital as the place of occurrence of the external cause; Y99.0 Civilian activity done for income or pay; Z79.2 Long term (current) use of antibiotics

== ENCOUNTER 2019-04-14 16:29 | Emergency (ER) | payer OTHER ==
[~2019-04-14] VITALS: Ht 165.1 cm; Wt 63.6 kg
[2019-04-14 16:29] VITALS: BP 128/97
[~2019-04-14 16:29] MED LIST changes: +SULF1TAB93
[2019-04-14] MEDS ORDERED: VENTAER INH (16:34)
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
[2019-04-14] MEDS ORDERED: IBUPROFEN 600 MG TAB PO ONE (17:30)
[2019-04-14] MEDS ORDERED: traMADol 50 MG TAB PO ONE (17:30)
== END 2019-04-14 17:59 | disposition home or self-care (01) ==
LOC: M ED 16:29
DX: S69.91XA Unspecified injury of right wrist, hand and finger(s), initial encounter (principal); W19.XXXA Unspecified fall, initial encounter; Y92.89 Other specified places as the place of occurrence of the external cause; Y99.0 Civilian activity done for income or pay; Y93.E5 Activity, floor mopping and cleaning; Z79.2 Long term (current) use of antibiotics

== ENCOUNTER → 2019-05-03 | Outpatient (REF) | payer OTHER ==
[~2019-05-03] MED LIST changes: +VENTAER INH
== END ==
LOC: M SFHCLERA 12:41
PROVIDERS: ATTEND Physician Assistant
DX: N94.9 Unspecified condition associated with female genital organs and menstrual cycle (principal)

== ENCOUNTER → 2019-07-14 | Outpatient (CLI) | payer OTHER ==
--- NOTE | 2019-07-16 23:47 | REP ---
LEFT KNEE SERIES, FIVE VIEWS There is no evidence of an acute fracture, dislocation or intrinsic bone disease. IMPRESSION: No fracture or dislocation. Electronically Signed by Siva Potter MD 07/17/2019 04:29 P
== END ==
LOC: M LRY 12:55
PROVIDERS: ATTEND Physician Assistant
DX: S89.92XA Unspecified injury of left lower leg, initial encounter (principal); X58.XXXA Exposure to other specified factors, initial encounter; Y92.89 Other specified places as the place of occurrence of the external cause

== ENCOUNTER 2019-08-14 17:56 | Emergency (ER) | payer OTHER ==
[~2019-08-14] VITALS: Ht 165.1 cm; Wt 68.2 kg
[2019-08-14 17:57] VITALS: BP 127/86
[2019-08-14] MEDS ORDERED: BENZ200C70 (18:03)
[2019-08-14] MEDS ORDERED: PRED20TA (18:03)
[2019-08-14] MEDS ORDERED: AZIT-12 (18:03)
[2019-08-14] MEDS ORDERED: SERT50TA29 (18:03)
[2019-08-14] MEDS ORDERED: TRAZ-252 (18:03)
[2019-08-14] MEDS ORDERED: SYMB80INH (18:03)
[2019-08-14] MEDS ORDERED: ALBU8.5H (18:03)
== END 2019-08-14 20:38 | disposition left against medical advice (07) ==
LOC: M ED 17:56
DX: Z53.21 Procedure and treatment not carried out due to patient leaving prior to being seen by health care provider (principal)

== ENCOUNTER 2019-12-29 22:29 | Emergency (ER) | payer OTHER ==
[~2019-12-29] VITALS: Ht 165.1 cm; Wt 72.1 kg
[~2019-12-29 22:29] MED LIST changes: +ALBU8.5H; +AZIT-12; +BENZ200C70; +PRED20TA; +SERT50TA29; +SYMB80INH; +TRAZ-252
[2019-12-29] MEDS ORDERED: BUSP15TA47 (22:38)
[2019-12-29] MEDS ORDERED: NEXP1IMP SC (22:38)
[2019-12-29] MEDS ORDERED: ZOLO50TA (22:38)
[2019-12-29] MEDS ORDERED: ALBUTEROL 90 MCG/ACT 8GM HFA INHALER INH ONE (23:15)
[2019-12-29 23:56] LABS: INFLUENZA A AMPLIFICATION NEGATIVE (NEGATIVE); INFLUENZA B AMPLIFICATION NEGATIVE (NEGATIVE)
[2019-12-30] MEDS ORDERED: KETOROLAC 30 MG/ML VIAL (J1885) IV ONE (00:15)
[2019-12-30] MEDS ORDERED: methylPREDNISolone INJ 125 MG/2 ML VIAL (J2930) IV ONE (00:30)
[2019-12-30 00:34] LABS: BASO % 0.3 % (0.0-1.0); EOS # 0.1 10^3/uL (0.0-0.5); EOS % 1.3 % (0.0-3.0); HEMATOCRIT 41.8 % (36.0-47.0); LYMPH % 28.6 % (24.0-44.0); MEAN CORPUSCULAR HEMOGLOBIN 31.3 pg (27.0-33.0); MEAN CORPUSCULAR HGB CONC 33.5 g/dl (32.0-36.5); MEAN CORPUSCULAR VOLUME 93.5 fl (80.0-96.0); MONO # 0.4 10^3/uL (0.0-0.8); MONO % 5.4 % (0.0-5.0); NEUTROPHILS # 4.6 10^3/uL (1.5-8.5); NEUTROPHILS % 64.3 % (36.0-66.0); PLATELET COUNT, AUTOMATED 212 10^3/uL (150-450); RED BLOOD COUNT 4.47 10^6/uL (4.00-5.40); WHITE BLOOD COUNT 7.1 10^3/uL (4.0-10.0)
[2019-12-30 00:55] LABS: ALBUMIN 4.3 GM/DL (3.2-5.2); ALT/SGPT 18 U/L (12-78); BILIRUBIN,TOTAL 0.3 MG/DL (0.2-1.0); BLOOD UREA NITROGEN 16 MG/DL (7-18); CALCIUM LEVEL 9.1 MG/DL (8.5-10.1); CARBON DIOXIDE LEVEL 28 MEQ/L (21-32); CHLORIDE LEVEL 108 MEQ/L (98-107); CREATININE FOR GFR 0.78 MG/DL (0.55-1.30); GLOMERULAR FILTRATION RATE > 60.0 (>60); GLUCOSE, FASTING 97 MG/DL (70-100); POTASSIUM SERUM 3.6 MEQ/L (3.5-5.1); SODIUM LEVEL 142 MEQ/L (136-145); TOTAL PROTEIN 7.1 GM/DL (6.4-8.2)
[2019-12-30] MEDS ORDERED: NORCO, ANEXSIA 5/325MG TABLET (HYDROcodone/ACETAMINOPHEN) PO ONE (01:30)
[2019-12-30 01:35] VITALS: BP 134/84
[2019-12-30] MEDS ORDERED: AZITHROMYCIN 250 MG TAB PO ONE (01:45)
[2019-12-30] MEDS ORDERED: TESS100C PO (01:55)
[2019-12-30] MEDS ORDERED: AZIT-12 PO (01:55)
--- NOTE | 2019-12-30 07:57 | ECGEPIP ---
[facility] - ED Test Date: 2019-12-29 Pat Name: MARCO KENYON Department: Room: - Gender: Female Solution Maker: VINNIE : 1995 Requested By: LYUBOV Che Order Number: [id number] Reading MD: Ruslan Keith Measurements Intervals [place] Rate: 79 P: 55 MD: 141 QRS: -89 QRSD: 88 T: 61 QT: 354 QTc: 407 Interpretive Statements SINUS RHYTHM LEFT AXIS DEVIATION INCOMPLETE RIGHT BUNDLE BRANCH BLOCK SIMILAR TO 12/28/18 Electronically Signed on 12-30-2019 7:57:51 EDT by Ruslan Keith
--- NOTE | 2019-12-30 12:30 | REP ---
REASON: Cough. COMPARISON: None. TWO-VIEW CHEST: COMPARISON: No priors. FINDINGS: The superior mediastinal structures are midline. The cardiac silhouette is unremarkable in size, shape, and position. The diaphragmatic surfaces of the lungs are regular, and the costophrenic angles are clear. The pulmonary gordon are clear. The imaged osseous structures are intact. IMPRESSION: There is no acute cardiopulmonary disease. Unreviewed
== END 2019-12-30 02:15 | disposition home or self-care (01) ==
LOC: M ED 22:29
DX: J20.9 Acute bronchitis, unspecified (principal); R05 Cough; J45.909 Unspecified asthma, uncomplicated; F17.290 Nicotine dependence, other tobacco product, uncomplicated
CPT/HCPCS: 71046; 80053; 85025; 85379; 87502; 87880; 93005; 94640; 96374; 96375; 99284; J1885; J2930

== ENCOUNTER → 2020-04-05 | Outpatient (CLI) | payer OTHER ==
[~2020-04-05] MED LIST changes: +AZIT-12 PO; +BUSP15TA47 PO; +NEXP1IMP SC; +TESS100C PO; +ZOLO50TA PO
== END ==
LOC: M LABSMTC 11:37
PROVIDERS: ATTEND Anesthesiology
DX: Z03.818 Encounter for observation for suspected exposure to other biological agents ruled out (principal); Z11.59 Encounter for screening for other viral diseases
CPT/HCPCS: C9803; U0003

== ENCOUNTER 2020-04-08 09:58 | Day surgery (SDC) | payer OTHER ==
[~2020-04-08] VITALS: Ht 165.1 cm; Wt 79.4 kg
[~2020-04-08 09:58] MED LIST changes: +NS 1,000 ML IV ONE
[2020-04-08] MEDS ORDERED: LIDOCAINE 2% 100MG/5ML SDV (FOR ANES.) As Ordered ONE (10:59)
[2020-04-08] MEDS ORDERED: propofoL 200 MG/20 ML VIAL As Ordered ONE ×2 (10:59→11:18)
--- NOTE | 2020-04-08 11:40 | ROOR ---
Patient Name: Alma Adams Procedure Date: 04/08/2020 10:59 AM Date of : 1995 Age: 24 Room: [facility] Gender: Female Note Status: Finalized Procedure: Colonoscopy Indications: Clinically significant diarrhea of unexplained origin, Exclusion of ulcerative colitis Providers: Salvador Vincent MD Referring MD: Tari MARSHALL Requesting Provider: Medicines: Monitored Anesthesia Care Complications: No immediate complications. Procedure: Pre-Anesthesia Assessment: - Prior to the procedure, a History and Physical was performed, and patient medications and allergies were reviewed. The patient is competent. The risks and benefits of the procedure and the sedation options and risks were discussed with the patient. All questions were answered and informed consent was obtained. Patient identification and proposed procedure were verified by the physician, the nurse and the anesthesiologist in the procedure room. Mental Status Examination: alert and oriented. Airway Examination: normal oropharyngeal airway and neck mobility. Respiratory Examination: clear to auscultation. CV Examination: normal. Prophylactic Antibiotics: The patient does not require prophylactic antibiotics. Prior Anticoagulants: The patient has taken no previous anticoagulant or antiplatelet agents. ASA Grade Assessment: II - A patient with mild systemic disease. After reviewing the risks and benefits, the patient was deemed in satisfactory condition to undergo the procedure. The anesthesia plan was to use monitored anesthesia care (MAC). Immediately prior to administration of medications, the patient was re-assessed for adequacy to receive sedatives. The heart rate, respiratory rate, oxygen saturations, blood pressure, adequacy of pulmonary ventilation, and response to care were monitored throughout the procedure. The physical status of the patient was re-assessed after the procedure. The Colonoscope was introduced through the anus and advanced to the terminal ileum, with identification of the appendiceal orifice and IC valve. The colonoscopy was performed without difficulty. The patient tolerated the procedure well. The quality of the bowel preparation was good. The terminal ileum, ileocecal valve, appendiceal orifice, and rectum were photographed. Scope insertion time was 2 minutes. Scope withdrawal time was 8 minutes. The total duration of the procedure was 10 minutes. Findings: The perianal and digital rectal examinations were normal. The terminal ileum appeared normal. A 5 mm polyp was found in the rectum. The polyp was sessile. The polyp was removed with a jumbo cold forceps. Resection and retrieval were complete. Verification of patient identification for the specimen was done by the physician and nurse using the patient's name, date and medical record number. Estimated blood loss was minimal. Normal mucosa was found in the entire colon. Biopsies for histology were taken with a cold forceps from the right colon, left colon and rectosigmoid colon for evaluation of microscopic colitis. Non-bleeding external and internal hemorrhoids were found during retroflexion. The hemorrhoids were small. Impression: - The examined portion of the ileum was normal. - One 5 mm polyp in the rectum, removed with a jumbo cold forceps. Resected and retrieved. - Normal mucosa in the entire examined colon. Biopsied. - Non-bleeding external and internal hemorrhoids. Recommendation: - Patient has a contact number available for emergencies. The signs and symptoms of potential delayed complications were discussed with the patient. Return to normal activities tomorrow. Written discharge instructions were provided to the patient. - High fiber diet. - Continue present medications. - Await pathology results. - Repeat colonoscopy at age 50 for screening purposes. - Telephone GI clinic for pathology results in 2 weeks. - Return to primary care physician. Salvador Vincent MD Salvador Vincent MD 04/08/2020 11:40:12 AM Electronically signed by Salvador Vincent MD Number of Addenda: 0 Note Initiated On: 04/08/2020 10:59 AM Estimated Blood Loss: Estimated blood loss was minimal.
[2020-04-08 11:50] VITALS: BP 109/63
== END 2020-04-08 12:02 | disposition home or self-care (01) ==
LOC: M OPP 09:58
PROVIDERS: ATTEND Internal Medicine Gastroenterology
DX: D12.7 Benign neoplasm of rectosigmoid junction (principal); K64.8 Other hemorrhoids; R19.7 Diarrhea, unspecified; Z79.899 Other long term (current) drug therapy; F17.210 Nicotine dependence, cigarettes, uncomplicated

== ENCOUNTER → 2020-09-05 | Outpatient (REF) | payer OTHER ==
[~2020-09-05] MED LIST changes: -NS 1,000 ML IV ONE
[2020-09-05 12:25] LABS: HEMOGLOBIN A1c 5.3 %
[2020-09-05 12:27] LABS: HCG, SERUM QUALITATIVE NEGATIVE (NEGATIVE)
[2020-09-05 12:36] LABS: FREE T4 1.02 NG/DL (0.76-1.46)
[2020-09-15 21:06] LABS: 17 HYDROXY PROGESTERONE 125 ng/dL (.); TESTOSTERONE FREE (DIRECT) 1.2 pg/mL (0.0-4.2)
== END ==
LOC: M PLALAB 09:07
PROVIDERS: ATTEND Advanced Practice Midwife
DX: N92.6 Irregular menstruation, unspecified (principal)

== ENCOUNTER → 2020-12-12 | Outpatient (CLI) | payer OTHER ==
[~2020-12-12] MED LIST changes: -BUPR150T3 PO; +BUPR150T4 PO; +ISOVUE-370 76% 100ML VIAL As Ordered ONE; +METH-1164 PO; -METH1TAB40 PO
--- NOTE | 2020-12-12 14:50 | REP ---
INDICATION: INFERTILITY. COMPARISON: None. TECHNIQUE: The endometrium is cannulated by the attending pattern keeper. Fluoroscopic guidance is provided during contrast injection and intermittent spot filming is acquired. 0.2 minutes of fluoroscopy time is utilized. FINDINGS: There is opacification of a normal shaped endometrial cavity. No filling defect or synechia is appreciated. The isthmic and ampullary segments of fallopian tubes opacify promptly and symmetrically. Bilateral tubal patency is documented. IMPRESSION: Normal hysterosalpingogram documenting bilateral tubal patency. <Electronically signed by Trino Acevedo > 12/12/20 [id number]
== END ==
LOC: M RADPRO 11:54
PROVIDERS: ATTEND Obstetrics & Gynecology
DX: N97.8 Female infertility of other origin (principal)

== ENCOUNTER → 2020-12-26 | Outpatient (CLI) | payer OTHER ==
[~2020-12-26] MED LIST changes: +BUPR150T12 PO; -BUPR150T4 PO; -ISOVUE-370 76% 100ML VIAL As Ordered ONE
== END ==
LOC: M LABSMTC 11:48
PROVIDERS: ATTEND Family Medicine
DX: Z20.822 Contact with and (suspected) exposure to COVID-19 (principal)
CPT/HCPCS: C9803; U0003

== ENCOUNTER → 2020-12-30 | Outpatient (CLI) | payer OTHER ==
--- NOTE | 2020-12-30 14:49 | REP ---
INDICATION: UNSPECIFIED ASTHMA WITH (ACUTE) EXACERBATION. COMPARISON: . 12/29/2019. TECHNIQUE: Upright PA and lateral chest. FINDINGS: The lung gordon are clear. Cardiac size is normal. The darren, mediastinum and skeletal structures are unremarkable. IMPRESSION: Essentially negative PA and lateral chest There is no interval change. <Electronically signed by Siva Sarkar > 12/30/20 [id number]
== END ==
LOC: M RAD 14:21
PROVIDERS: ATTEND Nurse Practitioner Family
DX: J45.901 Unspecified asthma with (acute) exacerbation (principal)

== ENCOUNTER → 2020-12-30 | Outpatient (REF) | payer OTHER | LOC: M SFHCLERA 13:47 | PROVIDERS: ATTEND Nurse Practitioner Family | DX: J06.9 Acute upper respiratory infection, unspecified (principal) ==

== ENCOUNTER → 2021-01-06 | Outpatient (REF) | payer OTHER | LOC: M SFHCLERA 11:13 | PROVIDERS: ATTEND Nurse Practitioner Family | DX: R50.9 Fever, unspecified (principal) ==

== ENCOUNTER → 2021-01-07 | Outpatient (CLI) | payer OTHER ==
[2021-01-07 11:22] LABS: BASO % 0.4 % (0.0-1.0); EOS # 0.2 10^3/uL (0.0-0.5); EOS % 2.8 % (0.0-3.0); HEMATOCRIT 43.9 % (36.0-47.0); HEMOGLOBIN 14.4 g/dl (12.0-15.5); LYMPH # 1.9 10^3/uL (1.5-5.0); LYMPH % 26.2 % (24.0-44.0); MEAN CORPUSCULAR HEMOGLOBIN 31.1 pg (27.0-33.0); MEAN CORPUSCULAR HGB CONC 32.8 g/dl (32.0-36.5); MEAN CORPUSCULAR VOLUME 94.8 fl (80.0-96.0); MONO # 0.4 10^3/uL (0.0-0.8); MONO % 5.5 % (2.0-8.0); NEUTROPHILS # 4.6 10^3/uL (1.5-8.5); NEUTROPHILS % 64.8 % (36.0-66.0); PLATELET COUNT, AUTOMATED 254 10^3/uL (150-450); RED BLOOD COUNT 4.63 10^6/uL (4.00-5.40); WHITE BLOOD COUNT 7.1 10^3/uL (4.0-10.0)
[2021-01-07 11:56] LABS: ALBUMIN 4.6 GM/DL (3.2-5.2); ALT/SGPT 22 U/L (12-78); BILIRUBIN,TOTAL 0.3 MG/DL (0.2-1.0); BLOOD UREA NITROGEN 10 MG/DL (7-18); CALCIUM LEVEL 9.7 MG/DL (8.5-10.1); CARBON DIOXIDE LEVEL 26 MEQ/L (21-32); CHLORIDE LEVEL 107 MEQ/L (98-107); CREATININE FOR GFR 0.65 MG/DL (0.55-1.30); GLOMERULAR FILTRATION RATE > 60.0 (>60); GLUCOSE, FASTING 100 MG/DL (70-100); POTASSIUM SERUM 4.4 MEQ/L (3.5-5.1); SODIUM LEVEL 139 MEQ/L (136-145); TOTAL PROTEIN 7.6 GM/DL (6.4-8.2)
== END ==
LOC: M LAB 10:53
PROVIDERS: ATTEND Nurse Practitioner Family
DX: R50.9 Fever, unspecified (principal)

== ENCOUNTER → 2021-02-06 | Outpatient (REF) | payer OTHER | LOC: M LAB REF 17:11 | PROVIDERS: ATTEND Nurse Practitioner Adult Health | DX: R05 Cough (principal) ==

== ENCOUNTER → 2021-04-02 | Outpatient (REF) | payer OTHER ==
[~2021-04-02] MED LIST changes: +BACTDSTA; -SULF1TAB93
[2021-04-02 14:33] LABS: HEMATOCRIT 40.2 % (36.0-47.0); HEMOGLOBIN 13.1 g/dl (12.0-15.5); MEAN CORPUSCULAR HEMOGLOBIN 31.3 pg (27.0-33.0); MEAN CORPUSCULAR HGB CONC 32.6 g/dl (32.0-36.5); MEAN CORPUSCULAR VOLUME 96.2 fl (80.0-96.0); PLATELET COUNT, AUTOMATED 250 10^3/uL (150-450); RED BLOOD COUNT 4.18 10^6/uL (4.00-5.40); WHITE BLOOD COUNT 9.8 10^3/uL (4.0-10.0)
[2021-04-02 14:53] LABS: FREE T4 1.07 NG/DL (0.76-1.46); THYROID STIMULATING HORMONE 0.259 uIU/ML (0.358-3.740)
[2021-04-02 15:37] LABS: HEPATITIS C VIRUS ABY INDEX < 0.0 INDEX (<0.8)
[2021-04-02 15:38] LABS: HIV 1&2 SCREEN CENTAUR NEGATIVE (NEGATIVE)
[2021-04-02 16:15] LABS: CHLAMYDIA DNA AMPLIFICATION NEGATIVE (NEGATIVE); GC DNA AMPLIFICATION NEGATIVE (NEGATIVE)
== END ==
LOC: M PLALAB 10:43
PROVIDERS: ATTEND Advanced Practice Midwife
DX: Z34.91 Encounter for supervision of normal pregnancy, unspecified, first trimester (principal); Z3A.01 Less than 8 weeks gestation of pregnancy

== ENCOUNTER → 2021-04-30 | Outpatient (CLI) | payer OTHER | LOC: M LAB 10:42 | PROVIDERS: ATTEND Advanced Practice Midwife | DX: Z34.81 Encounter for supervision of other normal pregnancy, first trimester (principal) ==

== ENCOUNTER → 2021-06-13 | Outpatient (CLI) | payer OTHER ==
[2021-06-13 10:27] LABS: HEMOGLOBIN A1c 5.3 %
[2021-06-13 10:37] LABS: BLOOD UREA NITROGEN 7 MG/DL (7-18); CALCIUM LEVEL 9.3 MG/DL (8.5-10.1); CARBON DIOXIDE LEVEL 25 MEQ/L (21-32); CHLORIDE LEVEL 108 MEQ/L (98-107); CREATININE FOR GFR 0.51 MG/DL (0.55-1.30); GLOMERULAR FILTRATION RATE > 60.0 (>60); GLUCOSE, FASTING 68 MG/DL (70-100); POTASSIUM SERUM 3.9 MEQ/L (3.5-5.1); SODIUM LEVEL 140 MEQ/L (136-145)
== END ==
LOC: M LAB 08:43
PROVIDERS: ATTEND Nurse Practitioner Family
DX: Z00.00 Encounter for general adult medical examination without abnormal findings (principal)

== ENCOUNTER → 2021-07-04 | Outpatient (CLI) | payer OTHER ==
--- NOTE | 2021-07-05 18:00 | REP ---
INDICATION: ANATOMY COMPARISON: None. TECHNIQUE: Transabdominal obstetrical ultrasound with color Doppler evaluation. FINDINGS: Examination demonstrates a single live intrauterine in variable presentation. motion is identified by technologist. Placenta is noted posterior and grade 0 without evidence for placenta previa or abruption. Amniotic fluid volume is normal. Cervix measures 3.2 cm in length and appears closed.. Selected gestational age: 20 weeks 5 days with ARIAS 11/16/2021. Gestational age by current measurements 20 weeks 3 days with ARIAS 11/18/2021. FHR equals 153 beats per minute. BPD: 4.9 cm at 20 weeks 5 days HC: 17.8 cm at 20 weeks 2 days AC: 15.0 cm at 20 weeks 2 days FL: 3.4 cm at 20 weeks 4 days HL: 3.1 cm at 20 weeks 3 days HC/AC: 1.19 Estimated weight 350 grams (28thpercentile). Anatomical assessment demonstrates normal structures including cranium, choroid plexus, cavum, cerebellum/posterior fossa, facial features, lungs, four-chamber heart/ventricular outflow tracts, diaphragm, stomach, cord insertion/three-vessel cord, kidneys/bladder, spine, and extremities. IMPRESSION: Single live intrauterine in variable presentation demonstrating appropriate estimated weight/growth. Anatomical assessment is complete and normal. <Electronically signed by Israel Williamson > 07/05/21 [id number]
== END ==
LOC: M WHC 08:09
PROVIDERS: ATTEND Advanced Practice Midwife
DX: O09.02 Supervision of pregnancy with history of infertility, second trimester (principal); Z3A.20 20 weeks gestation of pregnancy

== ENCOUNTER 2021-07-29 14:26 | Emergency (ER) | payer OTHER ==
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
[2021-07-29] MEDS ORDERED: AMOX875T2 (17:30)
[2021-07-29 17:35] VITALS: BP 124/87
[2021-07-29] MEDS ORDERED: PRENTAB9 PO (18:49)
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
== END 2021-07-29 17:55 | disposition admitted as inpatient to this hospital (09) ==
LOC: M ED 14:26 → EDBD 14:26 → M ED 17:55
DX: O9A.212 Injury, poisoning and certain other consequences of external causes complicating pregnancy, second trimester (principal); V49.40XA Driver injured in collision with unspecified motor vehicles in traffic accident, initial encounter; O36.0120 Maternal care for anti-D [Rh] antibodies, second trimester, not applicable or unspecified; Z3A.24 24 weeks gestation of pregnancy; Z87.891 Personal history of nicotine dependence; Y92.9 Unspecified place or not applicable; Y93.9 Activity, unspecified; Y99.9 Unspecified external cause status

== ENCOUNTER → 2021-07-30 | Outpatient (CLI) | payer OTHER ==
[~2021-07-30] MED LIST changes: +AMOX875T2; +PRENTAB9 PO
--- NOTE | 2021-07-30 11:42 | REP ---
INDICATION: PAIN IN RIGHT KNEE COMPARISON: None. TECHNIQUE: AP, lateral, bilateral oblique and sunrise views. FINDINGS: The osseous structures and joint spaces are intact and normal. There is no evidence for acute fracture or dislocation. No joint effusion is appreciated. Surrounding soft tissues are unremarkable. No subcutaneous emphysema or radiodense foreign body. IMPRESSION: Normal age-appropriate right knee examination. <Electronically signed by Israel Williamson > 07/30/21 [id number]
== END ==
LOC: M PLAIMG 10:52
PROVIDERS: ATTEND Internal Medicine
DX: M25.561 Pain in right knee (principal)

== ENCOUNTER → 2021-08-19 | Outpatient (CLI) | payer OTHER ==
[2021-08-19 13:19] LABS: HEMOGLOBIN 11.1 g/dl (12.0-15.5); MEAN CORPUSCULAR HEMOGLOBIN 31.9 pg (27.0-33.0); MEAN CORPUSCULAR HGB CONC 32.6 g/dl (32.0-36.5); MEAN CORPUSCULAR VOLUME 97.7 fl (80.0-96.0); PLATELET COUNT, AUTOMATED 226 10^3/uL (150-450); RED BLOOD COUNT 3.48 10^6/uL (4.00-5.40); WHITE BLOOD COUNT 13.5 10^3/uL (4.0-10.0)
== END ==
LOC: M PLALAB 08:36
PROVIDERS: ATTEND Advanced Practice Midwife
DX: Z34.82 Encounter for supervision of other normal pregnancy, second trimester (principal); Z3A.00 Weeks of gestation of pregnancy not specified

== ENCOUNTER 2021-09-14 20:32 | Outpatient (CLI) | payer OTHER ==
[~2021-09-14] VITALS: Ht 165.1 cm; Wt 75.1 kg
[2021-09-14 20:54] VITALS: BP 120/75
[2021-09-14 22:53] LABS: GC DNA AMPLIFICATION NEGATIVE (NEGATIVE)
[2021-09-15] MEDS ORDERED: MACR100C43 PO (01:00)
[2021-11-24] MEDS ORDERED: MIRA3350 PO (13:35)
== END 2021-09-14 22:22 | disposition home or self-care (01) ==
LOC: M LDO 20:32
PROVIDERS: ATTEND Obstetrics & Gynecology
DX: O26.893 Other specified pregnancy related conditions, third trimester (principal); R31.9 Hematuria, unspecified; Z3A.31 31 weeks gestation of pregnancy

== ENCOUNTER 2021-09-19 11:30 | Outpatient (CLI) | payer OTHER ==
[~2021-09-19] VITALS: Ht 165.1 cm; Wt 75.7 kg
[~2021-09-19 11:30] MED LIST changes: +MACR100C43 PO
[2021-09-19 11:55] VITALS: BP 129/83
[2021-09-19] MEDS ORDERED: HOME MED LIST COMPLETE! XX SCH (11:55)
[2021-09-19 13:16] LABS: APPEARANCE, URINE HAZY (CLEAR); BACTERIA, URINE AUTO NEGATIVE (NEGATIVE); BILIRUBIN, URINE AUTO NEGATIVE (NEGATIVE); BLOOD, URINE BLOOD NEGATIVE (NEGATIVE); COLOR, URINE YELLOW (YELLOW); GLUCOSE, URINE (UA) AUTO NEGATIVE (NEGATIVE); KETONE, URINE AUTO NEGATIVE (NEGATIVE); LEUKOCYTE ESTERASE, URINE AUTO NEGATIVE (NEGATIVE); NITRITE, URINE AUTO NEGATIVE (NEGATIVE); PROTEIN, URINE AUTO NEGATIVE (NEGATIVE); RBC, URINE AUTO 0 /HPF (0-3); SPECIFIC GRAVITY URINE AUTO 1.014 (1.002-1.035); SQUAMOUS EPITHELIAL CELL UR AU 2 /HPF (0-6); UROBILINOGEN, URINE AUTO 0.2 mg/dL (0.0-2.0); WBC, URINE AUTO 4 /HPF (0-3)
[2021-09-19] MEDS ORDERED: METOCLOPRAMIDE 5 MG TAB PO ONE (14:00)
--- NOTE | 2021-09-19 14:49 | IPNPDOC ---
Text Note Date of Service The patient was seen on 09/19/21. NOTE Outpatient Feeling better after reglan and eating No UC Cat I tracing Discharged home. Keep next appt . Routine precautions. VS,Fishbone, I+O VS, Fishbone, I+O Vital Signs Date Time Temp Pulse Resp B/P (MAP) Pulse Ox O2 Delivery O2 Flow Rate FiO2 09/19/21 11:55 97.8 100 16 129/83 (98) Vida Scanlon CNM Sep 19, 2021 14:49
[2021-09-19] MEDS ORDERED: REGL5TAB2 PO (14:50)
== END 2021-09-19 14:57 | disposition home or self-care (01) ==
LOC: M LDO 11:30
PROVIDERS: ATTEND Advanced Practice Midwife
DX: O60.03 Preterm labor without delivery, third trimester (principal); Z3A.00 Weeks of gestation of pregnancy not specified

== ENCOUNTER → 2021-10-21 | Outpatient (REF) | payer OTHER ==
[~2021-10-21] MED LIST changes: +REGL5TAB2 PO
[2021-10-21 13:10] LABS: APPEARANCE, URINE CLOUDY (CLEAR); BACTERIA, URINE AUTO 2+ (NEGATIVE); BILIRUBIN, URINE AUTO NEGATIVE (NEGATIVE); BLOOD, URINE BLOOD NEGATIVE (NEGATIVE); COLOR, URINE YELLOW (YELLOW); GLUCOSE, URINE (UA) AUTO NEGATIVE (NEGATIVE); KETONE, URINE AUTO NEGATIVE (NEGATIVE); LEUKOCYTE ESTERASE, URINE AUTO 1+ (NEGATIVE); MUCUS, URINE SMALL (NEGATIVE); NITRITE, URINE AUTO NEGATIVE (NEGATIVE); PROTEIN, URINE AUTO NEGATIVE (NEGATIVE); RBC, URINE AUTO 4 /HPF (0-3); SPECIFIC GRAVITY URINE AUTO 1.009 (1.002-1.035); SQUAMOUS EPITHELIAL CELL UR AU 6 /HPF (0-6); UROBILINOGEN, URINE AUTO 0.2 mg/dL (0.0-2.0); WBC, URINE AUTO 9 /HPF (0-3)
== END ==
LOC: M SFHCWAGY 12:44
PROVIDERS: ATTEND Specialist
DX: N39.0 Urinary tract infection, site not specified (principal)

== ENCOUNTER → 2021-10-29 | Outpatient (REF) | payer OTHER | LOC: M SFHCWAGY 16:44 | PROVIDERS: ATTEND Advanced Practice Midwife | DX: Z3A.37 37 weeks gestation of pregnancy (principal) ==

== ENCOUNTER 2021-11-01 15:31 | Outpatient (CLI) | payer OTHER ==
[~2021-11-01] VITALS: Ht 165.1 cm; Wt 80.0 kg
[2021-11-01 15:47] VITALS: BP 128/86
[2021-11-01 16:09] VITALS: BP 115/73
[2021-11-01] MEDS ORDERED: OMEP10CASR PO (16:20)
[2021-11-01] MEDS ORDERED: COLA100C5 PO (16:21)
[2021-11-01] MEDS ORDERED: MILKSUS5 PO (16:22)
[2021-11-01] MEDS ORDERED: SYMB16INH INH (16:23)
[2021-11-01] MEDS ORDERED: HOME MED LIST COMPLETE! XX SCH (17:05)
[2021-11-01 17:30] VITALS: BP 115/71
== END 2021-11-01 17:50 | disposition home or self-care (01) ==
LOC: M LDO 15:31
PROVIDERS: ATTEND Obstetrics & Gynecology
DX: O60.03 Preterm labor without delivery, third trimester (principal); O26.893 Other specified pregnancy related conditions, third trimester; N89.8 Other specified noninflammatory disorders of vagina; Z3A.37 37 weeks gestation of pregnancy

== ENCOUNTER 2021-11-04 19:47 | Outpatient (CLI) | payer OTHER ==
[~2021-11-04] VITALS: Ht 165.1 cm; Wt 80.9 kg
[~2021-11-04 19:47] MED LIST changes: +COLA100C5 PO; +MILKSUS5 PO; +OMEP10CASR PO; +SYMB16INH INH
[2021-11-04] MEDS ORDERED: ACET325C5 PO (20:07)
[2021-11-04 20:08] VITALS: BP 127/70
[2021-11-04] MEDS ORDERED: LR 1,000 ML IV ONE (20:15)
[2021-11-04] MEDS ORDERED: PROMETHAZINE INJ 25 MG/ML VIAL (J2550) IV ONE (20:55)
[2021-11-04] MEDS ORDERED: ACETAMINOPHEN 500 MG TAB PO ONE (20:55)
[2021-11-04 21:00] VITALS: BP 106/65
[2021-11-04] MEDS ORDERED: cefTRIAXone SOD 1 GM in D5W MINI-BAG PLUS 50 ML IV ONE (21:30)
[2021-11-04] MEDS: LR 1,000 ML IV SCH (22:24)
[2021-11-04 22:25] VITALS: BP 100/63
[2021-11-04] MEDS ORDERED: PROMETHAZINE INJ 25 MG/ML VIAL (J2550) IV PRN (22:50)
[2021-11-04] MEDS ORDERED: ACETAMINOPHEN 500 MG TAB PO PRN (22:50)
[2021-11-05 02:56] VITALS: BP 101/60
[2021-11-05 06:32] VITALS: BP 117/67
[2021-11-05] MEDS: LR 1,000 ML IV SCH ×2 (06:33→18:11)
[2021-11-05] MEDS ORDERED: PRENATAL VITAMINS CHEWABLE TABLET PO SCH (09:00)
[2021-11-05] MEDS ORDERED: OMEPRAZOLE 20 MG CAP PO SCH (09:00)
[2021-11-05 10:20] VITALS: BP 106/59
[2021-11-05] MEDS: DOCUSATE SODIUM 100MG CAPSULE PO SCH ×2 (10:22→20:57)
[2021-11-05 14:09] VITALS: BP 110/62
[2021-11-05] MEDS ORDERED: guaiFENesin DM LIQ 10ML UD PO PRN (17:05)
[2021-11-05 18:11] VITALS: BP 123/74
[2021-11-05 20:55] VITALS: BP 112/66
[2021-11-05] MEDS ORDERED: cefTRIAXone SOD 1 GM in D5W MINI-BAG PLUS 50 ML IV ONE (21:30)
== END 2021-11-05 21:31 | disposition home or self-care (01) ==
LOC: M LDO 19:47
PROVIDERS: ATTEND Obstetrics & Gynecology
DX: O21.8 Other vomiting complicating pregnancy (principal); O26.893 Other specified pregnancy related conditions, third trimester; M54.59 Other low back pain; O98.513 Other viral diseases complicating pregnancy, third trimester; U07.1 COVID-19; Z3A.38 38 weeks gestation of pregnancy
CPT/HCPCS: 59025; 76775; 76815; 76816; 76819; 76820; 81001; 87086; 87798; 96360; 96361; 96365; 96375; 96376; J0696

== ENCOUNTER 2021-11-15 00:23 | Outpatient (CLI) | payer OTHER ==
[~2021-11-15] VITALS: Ht 165.1 cm; Wt 83.6 kg
[~2021-11-15 00:23] MED LIST changes: +ACET325C5 PO
[2021-11-15 00:39] VITALS: BP 125/71
[2021-11-15] MEDS ORDERED: ALBU83IN NEB (00:43)
[2021-11-15] MEDS ORDERED: HOME MED LIST COMPLETE! XX SCH (01:00)
[2021-11-15] MEDS ORDERED: LR 800 ML IV ONE (01:25)
[2021-11-15 01:35] LABS: HEMATOCRIT 32.1 % (36.0-47.0); HEMOGLOBIN 10.5 g/dl (12.0-15.5); MEAN CORPUSCULAR HEMOGLOBIN 30.7 pg (27.0-33.0); MEAN CORPUSCULAR HGB CONC 32.7 g/dl (32.0-36.5); MEAN CORPUSCULAR VOLUME 93.9 fl (80.0-96.0); PLATELET COUNT, AUTOMATED 231 10^3/uL (150-450); RED BLOOD COUNT 3.42 10^6/uL (4.00-5.40); WHITE BLOOD COUNT 14.1 10^3/uL (4.0-10.0)
[2021-11-15 02:27] VITALS: BP 107/58
[2021-11-15 04:02] VITALS: BP 136/79
[2021-11-15 06:38] VITALS: BP 108/67
[2021-11-15 07:48] VITALS: BP 101/62
[2021-11-24] MEDS ORDERED: MIRA3350 PO (13:35)
== END 2021-11-15 09:00 | disposition home or self-care (01) ==
LOC: M LDO 00:23
PROVIDERS: ATTEND Obstetrics & Gynecology
DX: O26.893 Other specified pregnancy related conditions, third trimester (principal); R25.2 Cramp and spasm; Z3A.39 39 weeks gestation of pregnancy; O99.893 Other specified diseases and conditions complicating puerperium; N93.0 Postcoital and contact bleeding; Z79.899 Other long term (current) drug therapy

== ENCOUNTER → 2022-01-06 | Outpatient (CLI) | payer OTHER ==
[~2022-01-06] MED LIST changes: +ALBU83IN NEB; +MIRA3350 PO
[2022-01-06 17:20] LABS: BLOOD UREA NITROGEN 18 MG/DL (7-18); CALCIUM LEVEL 9.9 MG/DL (8.5-10.1); CARBON DIOXIDE LEVEL 27 MEQ/L (21-32); CHLORIDE LEVEL 110 MEQ/L (98-107); GLOMERULAR FILTRATION RATE > 60.0 (>60); GLUCOSE, FASTING 94 MG/DL (70-100); POTASSIUM SERUM 3.6 MEQ/L (3.5-5.1); SODIUM LEVEL 140 MEQ/L (136-145)
== END ==
LOC: M LAB 16:17
PROVIDERS: ATTEND Student in an Organized Health Care Education/Training Program
DX: G43.909 Migraine, unspecified, not intractable, without status migrainosus (principal)

== ENCOUNTER → 2022-01-07 | Outpatient (CLI) | payer OTHER ==
[~2022-01-07] MED LIST changes: +PROHANCE 279.3MG/ML 15ML VIAL As Ordered ONE
== END ==
LOC: M RAD 15:08
PROVIDERS: ATTEND Student in an Organized Health Care Education/Training Program
DX: G43.009 Migraine without aura, not intractable, without status migrainosus (principal)
CPT/HCPCS: 70553; A9576

== ENCOUNTER → 2022-04-23 | Outpatient (CLI) | payer OTHER ==
[~2022-04-23] MED LIST changes: +ALBU2.5V10 NEB; -ALBU83IN NEB; +ETON68IM SC; -NEXP1IMP SC; -PROHANCE 279.3MG/ML 15ML VIAL As Ordered ONE
[2022-04-23 13:00] LABS: BASO % 0.4 % (0.0-1.0); EOS # 0.2 10^3/uL (0.0-0.5); EOS % 3.3 % (0.0-3.0); HEMATOCRIT 43.6 % (36.0-47.0); LYMPH % 29.7 % (24.0-44.0); MEAN CORPUSCULAR HEMOGLOBIN 29.3 pg (27.0-33.0); MEAN CORPUSCULAR HGB CONC 32.1 g/dl (32.0-36.5); MEAN CORPUSCULAR VOLUME 91.2 fl (80.0-96.0); MONO # 0.3 10^3/uL (0.0-0.8); MONO % 4.7 % (2.0-8.0); NEUTROPHILS # 4.2 10^3/uL (1.5-8.5); NEUTROPHILS % 61.6 % (36.0-66.0); PLATELET COUNT, AUTOMATED 271 10^3/uL (150-450); RED BLOOD COUNT 4.78 10^6/uL (4.00-5.40); WHITE BLOOD COUNT 6.9 10^3/uL (4.0-10.0)
[2022-04-23 13:35] LABS: ERYTHROCYTE SEDIMENTATION RATE 10 mm/hr (0-20)
[2022-04-23 13:40] LABS: ALBUMIN 4.7 GM/DL (3.2-5.2); ALT/SGPT 25 U/L (12-78); BILIRUBIN,TOTAL 0.5 MG/DL (0.2-1.0); BLOOD UREA NITROGEN 13 MG/DL (7-18); CALCIUM LEVEL 9.9 MG/DL (8.5-10.1); CARBON DIOXIDE LEVEL 24 MEQ/L (21-32); CHLORIDE LEVEL 110 MEQ/L (98-107); CREATININE FOR GFR 0.77 MG/DL (0.55-1.30); GLOMERULAR FILTRATION RATE > 60.0 (>60); GLUCOSE, FASTING 97 MG/DL (70-100); POTASSIUM SERUM 4.1 MEQ/L (3.5-5.1); RHEUMATOID FACTOR QUANT < 10.0 IU/ML (<15.0); SODIUM LEVEL 139 MEQ/L (136-145); TOTAL PROTEIN 7.6 GM/DL (6.4-8.2)
[2022-04-23 13:50] LABS: TOTAL 25(OH) VITAMIN D 25.4 NG/ML (30.0-100.0)
[2022-04-23 13:51] LABS: FOLATE 15.1 NG/ML; VITAMIN B12 LEVEL 329 PG/ML
== END ==
LOC: M LAB 11:57
PROVIDERS: ATTEND Psychiatry & Neurology Neurology
DX: R51.9 Headache, unspecified (principal)

== ENCOUNTER → 2022-04-30 | Outpatient (REF) | payer OTHER | LOC: M SFHCPLAZ 13:30 | PROVIDERS: ATTEND Physician Assistant | DX: J02.9 Acute pharyngitis, unspecified (principal) ==

== ENCOUNTER → 2022-06-04 | Outpatient (REF) | payer OTHER | LOC: M PLALAB 10:15 | PROVIDERS: ATTEND Advanced Practice Midwife | DX: Z12.4 Encounter for screening for malignant neoplasm of cervix (principal) ==

== ENCOUNTER → 2022-06-18 | Outpatient (CLI) | payer OTHER ==
[2022-06-18 09:56] LABS: OSMOLALITY URINE 725 MOSM/KG (50-1400)
[2022-06-18 09:57] LABS: BASO # 0.1 10^3/uL (0.0-0.2); BASO % 0.6 % (0.0-1.0); EOS # 0.2 10^3/uL (0.0-0.5); HEMATOCRIT 45.4 % (36.0-47.0); HEMOGLOBIN 14.2 g/dl (12.0-15.5); LYMPH # 2.8 10^3/uL (1.5-5.0); LYMPH % 26.1 % (24.0-44.0); MEAN CORPUSCULAR HEMOGLOBIN 29.6 pg (27.0-33.0); MEAN CORPUSCULAR HGB CONC 31.3 g/dl (32.0-36.5); MEAN CORPUSCULAR VOLUME 94.6 fl (80.0-96.0); MONO # 0.7 10^3/uL (0.0-0.8); MONO % 6.9 % (2.0-8.0); NEUTROPHILS # 6.8 10^3/uL (1.5-8.5); NEUTROPHILS % 63.7 % (36.0-66.0); PLATELET COUNT, AUTOMATED 273 10^3/uL (150-450); WHITE BLOOD COUNT 10.7 10^3/uL (4.0-10.0)
[2022-06-18 10:21] LABS: APPEARANCE, URINE MANUAL HAZY (CLEAR); BILIRUBIN, URINE MANUAL NEGATIVE (NEGATIVE); BLOOD URINE MANUAL POSITIVE (NEGATIVE); COLOR, URINE MANUAL YELLOW (YELLOW); GLUCOSE, URINE (UA) MANUAL NEGATIVE (NEGATIVE); KETONE, URINE MANUAL NEGATIVE (NEGATIVE); LEUKOCYTE ESTERASE, URINE MAN NEGATIVE (NEGATIVE); NITRITE, URINE MANUAL NEGATIVE (NEGATIVE); PROTEIN, URINE MANUAL NEGATIVE (NEGATIVE); UROBILINOGEN, URINE MANUAL NORMAL (NORMAL)
[2022-06-18 10:45] LABS: HEMOGLOBIN A1c 5.5 %
[2022-06-18 10:46] LABS: ALBUMIN 4.3 GM/DL (3.2-5.2); ALT/SGPT 24 U/L (12-78); BILIRUBIN,TOTAL 0.3 MG/DL (0.2-1.0); BLOOD UREA NITROGEN 13 MG/DL (7-18); CALCIUM LEVEL 9.4 MG/DL (8.5-10.1); CARBON DIOXIDE LEVEL 25 MEQ/L (21-32); CHLORIDE LEVEL 110 MEQ/L (98-107); CREATININE FOR GFR 0.76 MG/DL (0.55-1.30); GLOMERULAR FILTRATION RATE > 60.0 (>60); GLUCOSE, FASTING 86 MG/DL (70-100); POTASSIUM SERUM 3.8 MEQ/L (3.5-5.1); SODIUM LEVEL 140 MEQ/L (136-145); THYROID STIMULATING HORMONE 0.889 uIU/ML (0.358-3.740); TOTAL PROTEIN 7.4 GM/DL (6.4-8.2)
[2022-06-18 11:04] LABS: AMORPHOUS SEDIMENT, URINE SMALL AMOUNT (NEGATIVE); BACTERIA, URINE MOD AMOUNT; CALCIUM OXALATE CRYSTALS,URINE SMALL AMOUNT /hpf; HYALINE CAST, URINE NONE SEEN /lpf (0-1); MUCUS, URINE SMALL AMOUNT (NEGATIVE); RBC, URINE 0-1 /hpf (0-3); SQUAMOUS EPITHELIAL CELL URINE MOD AMOUNT /hpf (SMALL AMT)
[2022-06-18 11:30] LABS: OSMOLALITY SERUM 292 MOSM/KG (275-295)
== END ==
LOC: M LAB 09:03
PROVIDERS: ATTEND Family Medicine
DX: R63.1 Polydipsia (principal); R35.0 Frequency of micturition

== ENCOUNTER → 2022-07-10 | Outpatient (CLI) | payer OTHER ==
[2022-07-10 09:12] LABS: HCG, SERUM QUALITATIVE POSITIVE (NEGATIVE)
[2022-07-10 10:07] LABS: ESTRADIOL 48.3 PG/ML; FOLLICLE STIMULATING HORMONE 6.5 mIU/mL; LUTEINIZING HORMONE 15.5 mIU/mL
== END ==
LOC: M LAB 07:37
PROVIDERS: ATTEND Advanced Practice Midwife
DX: N92.6 Irregular menstruation, unspecified (principal)

== ENCOUNTER → 2022-07-15 | Outpatient (CLI) | payer OTHER | LOC: M PLALAB 08:36 | PROVIDERS: ATTEND Advanced Practice Midwife | DX: O20.9 Hemorrhage in early pregnancy, unspecified (principal); Z3A.00 Weeks of gestation of pregnancy not specified ==

== ENCOUNTER → 2022-07-22 | Outpatient (CLI) | payer OTHER | LOC: M PLALAB 08:23 | PROVIDERS: ATTEND Advanced Practice Midwife | DX: O03.9 Complete or unspecified spontaneous abortion without complication (principal) ==

== ENCOUNTER → 2022-08-03 | Outpatient (CLI) | payer OTHER | LOC: M PLALAB 08:22 | PROVIDERS: ATTEND Advanced Practice Midwife | DX: O03.9 Complete or unspecified spontaneous abortion without complication (principal) ==

== ENCOUNTER → 2022-08-18 | Outpatient (REF) | payer OTHER ==
[2022-08-18 19:21] LABS: APPEARANCE, URINE MANUAL HAZY (CLEAR); COLOR, URINE MANUAL LT YELLOW (YELLOW)
[2022-08-18 19:22] LABS: BILIRUBIN, URINE MANUAL NEGATIVE (NEGATIVE); BLOOD URINE MANUAL NEGATIVE (NEGATIVE); GLUCOSE, URINE (UA) MANUAL NEGATIVE (NEGATIVE); KETONE, URINE MANUAL NEGATIVE (NEGATIVE); LEUKOCYTE ESTERASE, URINE MAN TRACE (NEGATIVE); NITRITE, URINE MANUAL NEGATIVE (NEGATIVE); PROTEIN, URINE MANUAL NEGATIVE (NEGATIVE); SPECIFIC GRAVITY,URINE MANUAL 1.015 (1.002-1.035); UROBILINOGEN, URINE MANUAL NORMAL (NORMAL)
[2022-08-18 20:32] LABS: AMORPHOUS SEDIMENT, URINE MOD AMOUNT (NEGATIVE); BACTERIA, URINE SMALL AMOUNT; RBC, URINE NONE SEEN /hpf (0-3); SQUAMOUS EPITHELIAL CELL URINE MOD AMOUNT /hpf (SMALL AMT)
== END ==
LOC: M SFHCPLAZ 17:11
PROVIDERS: ATTEND Physician Assistant
DX: M54.50 Low back pain, unspecified (principal)

== ENCOUNTER → 2022-08-19 | Outpatient (CLI) | payer OTHER | LOC: M PLAIMG 08:45 | PROVIDERS: ATTEND Physician Assistant | DX: M54.50 Low back pain, unspecified (principal) ==

== ENCOUNTER → 2023-01-22 | Outpatient (CLI) | payer OTHER | LOC: M RAD 16:42 | PROVIDERS: ATTEND Physician Assistant Medical | DX: M79.672 Pain in left foot (principal) ==

== ENCOUNTER → 2023-11-10 | Outpatient (REF) | payer OTHER ==
[2023-11-10 18:00] LABS: BASO % 0.4 % (0.0-1.0); EOS # 0.3 10^3/uL (0.0-0.5); HEMATOCRIT 42.2 % (36.0-47.0); HEMOGLOBIN 13.7 g/dl (12.0-15.5); LYMPH # 2.7 10^3/uL (1.5-5.0); LYMPH % 32.5 % (24.0-44.0); MEAN CORPUSCULAR HEMOGLOBIN 30.4 pg (27.0-33.0); MEAN CORPUSCULAR HGB CONC 32.5 g/dl (32.0-36.5); MEAN CORPUSCULAR VOLUME 93.8 fl (80.0-96.0); MONO # 0.5 10^3/uL (0.0-0.8); MONO % 5.7 % (2.0-8.0); NEUTROPHILS # 4.9 10^3/uL (1.5-8.5); NEUTROPHILS % 58.2 % (36.0-66.0); PLATELET COUNT, AUTOMATED 275 10^3/uL (150-450); WHITE BLOOD COUNT 8.4 10^3/uL (4.0-10.0)
== END ==
LOC: M LAB REF 16:56
PROVIDERS: ATTEND Nurse Practitioner Adult Health
DX: J45.909 Unspecified asthma, uncomplicated (principal)

== ENCOUNTER → 2024-01-04 | Outpatient (CLI) | payer OTHER ==
[2024-01-04 13:57] LABS: HEMATOCRIT 42.8 % (36.0-47.0); HEMOGLOBIN 13.9 g/dl (12.0-15.5); MEAN CORPUSCULAR HEMOGLOBIN 30.6 pg (27.0-33.0); MEAN CORPUSCULAR HGB CONC 32.5 g/dl (32.0-36.5); MEAN CORPUSCULAR VOLUME 94.3 fl (80.0-96.0); PLATELET COUNT, AUTOMATED 248 10^3/uL (150-450); RED BLOOD COUNT 4.54 10^6/uL (4.00-5.40); WHITE BLOOD COUNT 8.7 10^3/uL (4.0-10.0)
[2024-01-04 14:06] LABS: HEMOGLOBIN A1c 5.2 % (4.0-6.0)
[2024-01-04 14:46] LABS: HIV 1&2 SCREEN NEGATIVE (NEGATIVE)
[2024-01-04 14:54] LABS: HEPATITIS C VIRUS ABY INDEX 0.03 INDEX (<0.8)
[2024-01-04 15:21] LABS: GC DNA AMPLIFICATION NEGATIVE (NEGATIVE)
== END ==
LOC: M PLALAB 10:08
PROVIDERS: ATTEND Advanced Practice Midwife
DX: Z34.81 Encounter for supervision of other normal pregnancy, first trimester (principal)

== ENCOUNTER → 2024-03-02 | Outpatient (CLI) | payer OTHER | LOC: M WHC 08:02 | PROVIDERS: ATTEND Advanced Practice Midwife | DX: Z34.82 Encounter for supervision of other normal pregnancy, second trimester (principal) ==

== ENCOUNTER → 2024-04-03 | Outpatient (CLI) | payer OTHER | LOC: M RAD 10:29 | PROVIDERS: ATTEND Obstetrics & Gynecology | DX: Z36.89 Encounter for other specified antenatal screening (principal); Z3A.23 23 weeks gestation of pregnancy ==

== ENCOUNTER → 2024-04-24 | Outpatient (CLI) | payer OTHER | LOC: M WHC 09:01 | PROVIDERS: ATTEND Obstetrics & Gynecology | DX: O24.312 Unspecified pre-existing diabetes mellitus in pregnancy, second trimester (principal); Z3A.26 26 weeks gestation of pregnancy; O44.42 Low lying placenta NOS or without hemorrhage, second trimester ==

== ENCOUNTER → 2024-04-28 | Outpatient (CLI) | payer OTHER ==
[2024-04-28 11:33] LABS: HEMATOCRIT 33.2 % (36.0-47.0); HEMOGLOBIN 10.9 g/dl (12.0-15.5); MEAN CORPUSCULAR HEMOGLOBIN 31.1 pg (27.0-33.0); MEAN CORPUSCULAR HGB CONC 32.8 g/dl (32.0-36.5); MEAN CORPUSCULAR VOLUME 94.6 fl (80.0-96.0); PLATELET COUNT, AUTOMATED 210 10^3/uL (150-450); RED BLOOD COUNT 3.51 10^6/uL (4.00-5.40); WHITE BLOOD COUNT 10.7 10^3/uL (4.0-10.0)
[2024-04-28 13:11] LABS: GC DNA AMPLIFICATION NEGATIVE (NEGATIVE)
== END ==
LOC: M LAB 09:08
PROVIDERS: ATTEND Obstetrics & Gynecology
DX: Z34.92 Encounter for supervision of normal pregnancy, unspecified, second trimester (principal); Z3A.23 23 weeks gestation of pregnancy

== ENCOUNTER → 2024-06-09 | Outpatient (CLI) | payer OTHER | LOC: M WHC 06:44 | PROVIDERS: ATTEND Obstetrics & Gynecology | DX: Z36.89 Encounter for other specified antenatal screening (principal); Z3A.30 30 weeks gestation of pregnancy ==

== ENCOUNTER → 2024-06-23 | Outpatient (CLI) | payer OTHER ==
[2024-06-23 14:05] LABS: HEMOGLOBIN A1c 5.1 % (4.0-6.0)
== END ==
LOC: M LAB 12:58
PROVIDERS: ATTEND Obstetrics & Gynecology
DX: O24.113 Pre-existing type 2 diabetes mellitus, in pregnancy, third trimester (principal)

== ENCOUNTER → 2024-06-27 | Outpatient (REF) | payer OTHER | LOC: M SFHCWAGY 16:54 | PROVIDERS: ATTEND Obstetrics & Gynecology | DX: Z34.83 Encounter for supervision of other normal pregnancy, third trimester (principal) ==

== ENCOUNTER → 2024-07-14 | Outpatient (CLI) | payer OTHER | LOC: M WHC 11:13 | PROVIDERS: ATTEND Obstetrics & Gynecology | DX: O24.113 Pre-existing type 2 diabetes mellitus, in pregnancy, third trimester (principal); Z3A.38 38 weeks gestation of pregnancy ==

== ENCOUNTER 2024-07-17 15:16 | Inpatient (IN) | payer OTHER ==
[~2024-07-17] VITALS: Ht 167.6 cm; Wt 103.7 kg
[2024-07-17] MEDS ORDERED: NOVOINJ12 SC (15:51)
[2024-07-17] MEDS ORDERED: NOVOINJ13 SC (15:51)
[2024-07-17 15:53] VITALS: BP 136/79
[2024-07-17] MEDS ORDERED: METHYLERGONOVINE MALEATE 0.2MG/ML 1ML VIAL IM PRN (16:35)
[2024-07-17] MEDS ORDERED: OXYTOCIN INJ 10UNITS/ML 1ML VIAL IM PRN (16:35)
[2024-07-17] MEDS ORDERED: TRANEXAMIC ACID INJection 1,000 MG in NS 100 ML IV PRN (16:35)
[2024-07-17] MEDS ORDERED: CARBOPROST TROMETHAMINE 250 MCG/ML AMP IM PRN (16:35)
[2024-07-17] MEDS ORDERED: INSULIN IV RATE CHANGE DOCUMENTATION ML/HR XX SCH (16:50)
[2024-07-17] MEDS: miSOPROStol 50MCG 1/2 TABLET PO SCH (17:27)
[2024-07-17 18:04] LABS: HEMATOCRIT 30.1 % (36.0-47.0); HEMOGLOBIN 9.5 g/dl (12.0-15.5); MEAN CORPUSCULAR HEMOGLOBIN 27.8 pg (27.0-33.0); MEAN CORPUSCULAR HGB CONC 31.6 g/dl (32.0-36.5); PLATELET COUNT, AUTOMATED 242 10^3/uL (150-450); RED BLOOD COUNT 3.42 10^6/uL (4.00-5.40); WHITE BLOOD COUNT 9.1 10^3/uL (4.0-10.0)
[2024-07-17 18:34] LABS: HEPATITIS C VIRUS ABY INDEX 0.03 INDEX (<0.8)
[2024-07-17 19:05] VITALS: BP 120/79
[2024-07-17 20:38] VITALS: BP 123/69
[2024-07-17 22:08] VITALS: BP 116/54
[2024-07-17 23:24] VITALS: BP 111/56
[2024-07-18] VITALS (36 sets, daily range): BP systolic 96–139; BP diastolic 54–80; O2SAT 98
[2024-07-18] MEDS: INSULIN REGULAR IN 0.9 % NACL 100 UNIT in IV 1 EA IV SCH (05:03)
[2024-07-18] MEDS: PRENATAL VITAMINS CHEWABLE TABLET PO SCH (09:00)
[2024-07-18] MEDS: SODIUM CHLORIDE 0.9% 1000ML IV ONE (09:25)
[2024-07-18] MEDS ORDERED: ePHEDrine SULFATE 25 MG/5 ML(5MG/ML) SYRINGE IVP PRN (09:40)
[2024-07-18] MEDS ORDERED: LR 500 ML IV PRN (09:40)
[2024-07-18] MEDS ORDERED: diphenhydrAMINE 50MG/ML VIAL IV PRN (09:40)
[2024-07-18] MEDS ORDERED: NALOXONE INJ 0.4MG/1ML VIAL IV PRN (09:40)
[2024-07-18] MEDS ORDERED: EPIDURAL/PCA KEYS XX PRN (09:40)
[2024-07-18] MEDS ORDERED: ONDANSETRON 4MG 2ML VIAL IV PRN (09:40)
[2024-07-18] MEDS: FENTANYL/ROPIVACAINE/NACL BAG 100 ML EPIDURAL SCH (10:25)
[2024-07-18] MEDS ORDERED: OXYTOCIN DRIP 30 UNITS in IV 1 EA IV SCH (11:00)
[2024-07-18] MEDS ORDERED: LR 1,000 ML IV SCH (11:05)
[2024-07-18] MEDS: OXYTOCIN DRIP 30 UNITS in IV 1 EA IV PRN (12:28)
[2024-07-18] MEDS: LIDOCAINE 1% MDV 20ML VIAL INFIL PRN (12:29)
[2024-07-18] MEDS ORDERED: METHYLERGONOVINE MALEATE 0.2 MG TAB PO PRN (12:45)
[2024-07-18] MEDS ORDERED: RHO(D) IMMUNE GLOBULIN/MALTOSE 500MCG(2500IU)/2.2ML VIAL (WINRHO) IM SCH (12:45)
[2024-07-18] MEDS ORDERED: ACETAMINOPHEN TAB 650MG DOSE (2X325MG) PO PRN (12:45)
[2024-07-18] MEDS ORDERED: IBUPROFEN 800 MG TAB PO PRN (12:45)
[2024-07-18] MEDS ORDERED: IBUPROFEN 600MG TAB PO PRN (12:45)
[2024-07-18] MEDS ORDERED: DOCUSATE SODIUM 100MG CAPSULE PO PRN (12:45)
[2024-07-18] MEDS: metFORMIN (GLUCOPHAGE) 500MG TAB PO SCH (18:18)
[2024-07-18] MEDS: ACETAMINOPHEN 500 MG TAB PO PRN (20:45)
[2024-07-18] MEDS: DIBUCAINE 1% OINTMENT 30GM TOP PRN (20:46)
[2024-07-19 06:00] VITALS: BP 117/73; O2SAT 98
[2024-07-19] MEDS: FLUZONE VACCINE TRIVALENT PF(2024-25) 0.5ML SYRINGE IM.IMMUN ONE (14:51)
[2024-07-20] MEDS ORDERED: MEASLES,MUMPS,RUBELLA VACCINE INJ (MMR-II) SC.IMMUN ONE (09:00)
== END 2024-07-19 16:45 | disposition home or self-care (01) | DRG 560 ==
LOC: M LDO 15:16 → M LDI 15:32 → M OBS 07-18 15:01
PROVIDERS: ADMIT Advanced Practice Midwife; ATTEND Advanced Practice Midwife
PROC: 3E033VJ Introduction of Other Hormone into Peripheral Vein, Percutaneous Approach (ICD-10-PCS; 2024-07-17)
PROC: 3E0DXGC Introduction of Other Therapeutic Substance into Mouth and Pharynx, External Approach (ICD-10-PCS; 2024-07-17)
PROC: 10E0XZZ Delivery of Products of Conception, External Approach (ICD-10-PCS; principal; 2024-07-18)
PROC: 0KQM0ZZ Repair Perineum Muscle, Open Approach (ICD-10-PCS; 2024-07-18)
DX: O24.113 Pre-existing type 2 diabetes mellitus, in pregnancy, third trimester (principal); O76 Abnormality in fetal heart rate and rhythm complicating labor and delivery; Z37.0 Single live birth; Z3A.38 38 weeks gestation of pregnancy; Z79.4 Long term (current) use of insulin; Z87.891 Personal history of nicotine dependence; O70.1 Second degree perineal laceration during delivery

== ENCOUNTER → 2024-08-30 | Outpatient (REF) ==
[~2024-08-30] MED LIST changes: +NOVOINJ12 SC; +NOVOINJ13 SC
== END ==
LOC: M PLAIMG 10:28
PROVIDERS: ATTEND Internal Medicine
DX: M54.50 Low back pain, unspecified (principal)

== ENCOUNTER → 2024-10-04 | Outpatient (CLI) | payer OTHER | LOC: M PLAIMG 07:02 | PROVIDERS: ATTEND Physician Assistant | DX: M25.562 Pain in left knee (principal) ==

== ENCOUNTER → 2024-12-15 | Outpatient (REF) | payer OTHER | LOC: M LAB REF 11:27 | PROVIDERS: ATTEND Nurse Practitioner Adult Health | DX: J45.901 Unspecified asthma with (acute) exacerbation (principal) ==

== ENCOUNTER → 2025-01-17 | Outpatient (CLI) | payer OTHER ==
[~2025-01-17] MED LIST changes: +PROHANCE 279.3MG/ML 15ML VIAL As Ordered ONE; +PROHANCE 279.3MG/ML 5ML VIAL As Ordered ONE
== END ==
LOC: M RAD 10:30
PROVIDERS: ATTEND Physician Assistant
DX: M25.562 Pain in left knee (principal)
CPT/HCPCS: 73723; A9576

== ENCOUNTER → 2025-02-20 | Outpatient (CLI) | payer OTHER ==
[~2025-02-20] MED LIST changes: +MAGN400O74 PO; -MILKSUS5 PO; -PROHANCE 279.3MG/ML 15ML VIAL As Ordered ONE; -PROHANCE 279.3MG/ML 5ML VIAL As Ordered ONE
[2025-02-20 18:13] LABS: HEPATITIS B SURFACE ANTIGEN NEGATIVE (NEGATIVE)
[2025-02-20 18:25] LABS: HIV 1&2 SCREEN NEGATIVE (NEGATIVE)
[2025-02-20 18:32] LABS: HEPATITIS C VIRUS ABY INDEX < 0.02 INDEX (<0.8)
[2025-02-20 18:33] LABS: HEPATITIS B CORE ANTIBODY IGM NEGATIVE (NEGATIVE)
[2025-02-20 19:57] LABS: Trichomonas vaginalis (AMP) NOT DETECTED (NEGATIVE)
[2025-02-20 20:21] LABS: GC DNA AMPLIFICATION NEGATIVE (NEGATIVE)
== END ==
LOC: M PLALAB 15:09
PROVIDERS: ATTEND Nurse Practitioner Family
DX: Z11.3 Encounter for screening for infections with a predominantly sexual mode of transmission (principal)

== ENCOUNTER → 2025-04-21 | Outpatient (CLI) | payer OTHER | LOC: M RAD 12:22 | PROVIDERS: ATTEND Pain Medicine Interventional Pain Medicine | DX: M47.817 Spondylosis without myelopathy or radiculopathy, lumbosacral region (principal) ==